=== PATIENT | female | born 1940 | race Caucasian/White ===

== ENCOUNTER → 2016-04-07 | Outpatient (CLI) | payer OTHER ==
[~2016-04-07] MED LIST: ACET-1311 PO; ASPI81TA28 PO; DILT180C96 PO; ESTR0.1D16 TD; IBUP-1459 PO
--- NOTE | 2016-04-10 14:55 | MAMMOGRAPHY REPORT ---
BILATERAL DIGITAL SCREENING MAMMOGRAM WITH CAD: 04/07/2016 CLINICAL HISTORY: Routine screening. Patient has no complaints. TECHNIQUE: Current study was also evaluated with a Computer Aided Detection (CAD) system. COMPARISON: Comparison is made to exams dated: 04/05/2015 mammogram, 03/13/2013 mammogram, 03/16/2014 mammogram, 04/14/2010 mammogram - [facility], and 09/24/2008. BREAST COMPOSITION: The tissue of both breasts is extremely dense, which lowers the sensitivity of mammography. FINDINGS: No suspicious masses, calcifications, or areas of architectural distortion are noted in e ither breast. There has been no significant interval change compared to prior exams. Scattered bilat eral benign-appearing calcifications are not significantly changed. Asymmetries in the left superio r breast on the MLO view appear stable to prior exams including the 2010 exam, and felt to represent normal fibroglandular tissue. IMPRESSION: ACR BI-RADS CATEGORY 2: BENIGN There is no mammographic evidence of malignancy. A 1 year screening mammogram is recommended. The p atient will receive written notification of the results. Approximately 10% of breast cancers are not detected with mammography. A negative mammographic repor t should not delay biopsy if a clinically suggestive mass is present. Ammy Barfield M.D. ah/:04/07/2016 16:41:33 Call Center Director: Flora SULLIVAN)(M), [facility] letter sent: Normal 1/2 BI-RADS Code: ACR BI-RADS Category 2: Benign
== END | disposition home or self-care (01) ==
LOC: C.MAMM 08:44
PROVIDERS: ATTEND Obstetrics & Gynecology
DX: Z12.31 Encounter for screening mammogram for malignant neoplasm of breast (principal)

== ENCOUNTER → 2016-05-15 | Outpatient (CLI) | payer OTHER ==
[2016-05-15 13:47] LABS: BLOOD UREA NITROGEN 15 mg/dl (7-18); BUN/CREATININE RATIO 19.2 (10-20); CALCIUM 9.1 mg/dl (8.5-10.1); CARBON DIOXIDE 28 mmol/L (21-32); CHLORIDE 104 mmol/L (98-107); CREATININE 0.76 mg/dl (0.60-1.20); GLUCOSE 79 mg/dl (70-99); SODIUM 140 mmol/L (136-145)
[2016-05-15 13:58] LABS: ESTIMATED AVERAGE GLUCOSE 108 mg/dl; HA1C FLAG Normal (Normal)
--- NOTE | 2016-05-19 11:45 | CODING QUERY MEDICAL NECESSITY ---
SUPPORTING DIAGNOSIS NEEDED A supporting diagnosis is required for the test/procedure performed on this patient in order for us to be reimbursed by the patient's insurance. Please provide a supporting diagnosis for the following test/procedure listed below next to the test name along with your signature. *If there is no additional diagnosis for this patient that would support the following test/procedure please document that below next to the test/procedure. Test(s)/Procedure(s) that require a supporting diagnosis: * GLYCATED HEMOGLOBIN DIAGNOSIS: * DOS: 05/15/16 Provider Signature: Date: Thank you Alexandria [facility]ers Health Information Management Once completed, please kindly fax back to [phone] For questions please call [phone]
== END | disposition home or self-care (01) ==
LOC: C.LAB 12:12
PROVIDERS: ATTEND Family Medicine
DX: I10 Essential (primary) hypertension (principal); I20.8 Other forms of angina pectoris; R73.03 Prediabetes; E55.9 Vitamin D deficiency, unspecified

== ENCOUNTER → 2016-05-29 | Outpatient (CLI) | payer OTHER | END | disposition home or self-care (01) | LOC: C.PAPS 09:08 | PROVIDERS: ATTEND Obstetrics & Gynecology | DX: Z12.4 Encounter for screening for malignant neoplasm of cervix (principal) ==

== ENCOUNTER → 2016-12-05 | Outpatient (CLI) | payer OTHER ==
[2016-12-05 10:10] LABS: HEMATOCRIT 44.4 % (37-47); MEAN CELL VOLUME 88.4 fL (80-100); MEAN CORPUSCULAR HEMOGLOBIN 29.7 pg (25-34); MEAN CORPUSCULAR HGB CONC 33.6 g/dl (32-36); PLATELET COUNT 204 K/uL (130-400); RED BLOOD COUNT 5.02 M/uL (4.2-5.4); WHITE BLOOD COUNT 5.14 K/uL (4.8-10.8)
[2016-12-05 10:25] LABS: ESTIMATED AVERAGE GLUCOSE 108 mg/dl; HA1C FLAG Normal (Normal)
[2016-12-05 10:37] LABS: BLOOD UREA NITROGEN 15 mg/dl (7-18); BUN/CREATININE RATIO 18.3 (10-20); CALCIUM 9.1 mg/dl (8.5-10.1); CARBON DIOXIDE 31 mmol/L (21-32); CHLORIDE 105 mmol/L (98-107); GLUCOSE 86 mg/dl (70-99); POTASSIUM 4.5 mmol/L (3.5-5.1); SODIUM 140 mmol/L (136-145)
[2016-12-05 10:41] LABS: CHOLESTEROL 212 mg/dl (0-200); CHOLESTEROL/HDL RATIO 2.8; HDL CHOLESTEROL 75 mg/dl; LDL CHOLESTEROL CALCULATED 113 mg/dl; TRIGLYCERIDES 122 mg/dl (0-150); VERY LOW DENSITY LIPOPROT CALC 24 mg/dl
== END | disposition home or self-care (01) ==
LOC: C.LAB 09:26
PROVIDERS: ATTEND Nurse Practitioner Family
DX: I10 Essential (primary) hypertension (principal); I20.8 Other forms of angina pectoris; R73.03 Prediabetes; R32 Unspecified urinary incontinence

== ENCOUNTER → 2017-06-14 | Outpatient (CLI) | payer OTHER ==
[2017-06-14 13:13] LABS: BASO % 0.5 %; BASO ABS # 0.03 K/uL (0-0.2); EOS ABS # 0.12 K/uL (0-0.5); HEMATOCRIT 42.5 % (37-47); HEMOGLOBIN 14.2 g/dL (12.0-16.0); IG# 0.02 K/uL (0.00-0.02); LYMPH % 22.4 %; LYMPH ABS # 1.34 K/uL (1.2-3.4); MEAN CELL VOLUME 88.9 fL (80-100); MEAN CORPUSCULAR HEMOGLOBIN 29.7 pg (25-34); MEAN CORPUSCULAR HGB CONC 33.4 g/dl (32-36); MEAN PLATELET VOLUME 10.5 fL (7.4-10.4); MONO % 4.5 %; MONO ABS # 0.27 K/uL (0.11-0.59); NEUT % 70.3 %; NEUT ABS # 4.21 K/uL (1.4-6.5); PLATELET COUNT 204 K/uL (130-400); RED CELL DISTRIBUTION WIDTH CV 12.9 % (11.5-14.5); RED CELL DISTRIBUTION WIDTH SD 41.9 fL (36.4-46.3); WHITE BLOOD COUNT 5.99 K/uL (4.8-10.8)
[2017-06-14 13:36] LABS: ALBUMIN 3.8 gm/dl (3.4-5.0); ALT/SGPT 29 U/L (12-78); AST/SGOT 21 U/L (15-37); BLOOD UREA NITROGEN 9 mg/dl (7-18); CALCIUM 9.1 mg/dl (8.5-10.1); CARBON DIOXIDE 27 mmol/L (21-32); CREATININE 0.79 mg/dl (0.60-1.20); GLUCOSE 87 mg/dl (70-99); POTASSIUM 4.2 mmol/L (3.5-5.1); SODIUM 139 mmol/L (136-145)
[2017-06-14 13:43] LABS: T3 FREE 2.57 pg/ml (2.30-4.20)
[2017-06-14 13:47] LABS: ALKALINE PHOSPHATASE 67 U/L (45-117); TOTAL PROTEIN 7.6 gm/dl (6.4-8.2)
== END | disposition home or self-care (01) ==
LOC: C.LAB 11:43
PROVIDERS: ATTEND Nurse Practitioner Family
DX: I10 Essential (primary) hypertension (principal); R73.03 Prediabetes; E55.9 Vitamin D deficiency, unspecified; R53.83 Other fatigue; I20.8 Other forms of angina pectoris

== ENCOUNTER 2018-10-18 00:57 | Inpatient (IN) ==
[2018-10-18] MEDS ORDERED: fentaNYL citrate 100 MCG/2 ML VIAL ONE ×3 (01:41→20:47)
[2018-10-18 02:02] LABS: Basophils # (auto) 0.03 K/uL (0-0.2); Basophils % (auto) 0.5 %; Eosinophils # (auto) 0.16 K/uL (0-0.5); Eosinophils % (auto) 2.7 %; Hematocrit (blood only) 41.9 % (37-47); Hemoglobin 14.1 g/dL (12.0-16.0); Immature Granulocytes # (auto) 0.02 K/uL (0.00-0.02); Immature Granulocytes % (auto) 0.3 %; Lymphocytes % (auto) 36.1 %; Mean Corpuscular Hgb Conc 33.7 g/dL (32-36); Mean Corpuscular Volume 87.5 fL (80-100); Mean Platelet Volume 10.4 fL (7.4-10.4); Monocytes # (auto) 0.42 K/uL (0.11-0.59); Monocytes % (auto) 7.2 %; Neutrophils # (auto) 3.09 K/uL (1.4-6.5); Neutrophils % (auto) 53.2 %; Platelet Count 177 K/uL (130-400); RDW Coefficient of Variation 13.4 % (11.5-14.5); RDW Standard Deviation 42.4 fL (36.4-46.3); Red Blood Count 4.79 M/uL (4.2-5.4); White Blood Count 5.82 K/uL (4.8-10.8)
[2018-10-18 02:05] LABS: D Dimer 410 ug/L FEU (0-500)
[2018-10-18 02:18] LABS: Alanine Aminotransferase 26 U/L (12-78); Albumin Globulin Ratio 1.1 (0.9-2); Albumin Level 4.1 gm/dl (3.4-5.0); Alkaline Phosphatase 101 U/L (45-117); Aspartate Aminotransferase 18 U/L (15-37); BUN Creatinine Ratio 19.7 (10-20); Bilirubin,Total 0.2 mg/dl (0.2-1); Blood Urea Nitrogen 17 mg/dl (7-18); Carbon Dioxide 27 mmol/L (21-32); Chloride 107 mmol/L (98-107); Est GFR (African American) 72.5; Est GFR (Non-African American) 62.5; Globulin 3.8 gm/dl (2.5-4.0); Glucose 104 mg/dl (70-99); Potassium 3.7 mmol/L (3.5-5.1); Sodium 141 mmol/L (136-145); Total Protein 7.9 gm/dl (6.4-8.2); Troponin I < 0.015 ng/ml (0-0.045)
[2018-10-18] MEDS ORDERED: ONDANSETRON INJ 2 MG/ML 2 ML VIAL IV STA ×2 (02:52→05:10)
[2018-10-18] MEDS ORDERED: HydrALAZINE HCL 20 MG/ML VIAL IV ONE (04:37)
[2018-10-18] MEDS ORDERED: HYDROmorphone INJ 1 MG/ML SYRINGE IV PRN ×2 (06:18)
[2018-10-18] MEDS ORDERED: AMPICILLIN/SULBACTAM SOD 3,000 MG in 0.9 % SODIUM CHLORIDE 100 ML IV SCH (06:18)
[2018-10-18] MEDS: LACTATED RINGER'S 1,000 ML IV SCH ×2 (06:39→18:26)
--- NOTE | 2018-10-18 06:53 | Emergency Department Note ---
Entered by Edel Stanley acting as a scribe for Kacie Marsh DO History of Present Illness General Chief complaint: Chest Pain Time Seen by Provider: 10/18/18 02:02 Source: patient and family History of Present Illness Onset (ago): hour(s) 1 Location: chest Radiation: back Severity: severe Pain Consistency: + constant Quality: + stabbing Relieved By: not by medication (Rolaide) Exacerbated By: + other (Lying in certain position) Associated symptoms: + chest pain; no nausea/vomiting, no shortness of breath and no other (Lower extremity swelling, abnormal urinary symptoms and abnormal bowel movements.) Treatments prior to arrival: other (Rolaide) The patient is a 78 year old female presenting to the Emergency Department complaining of constant chest pain starting 1 hour ago. The patient reports that she has severe chest pain just beneath her breasts. She states that this pain radiates across her chest and around to her back. She describes this pain as stabbing. She notes that lying in certain positions worsens her pain. She adds that she has never experienced this kind of pain before and that this pain does not feel like angina that she has experienced before. The patient reports that her chest feels equally painful and that one side of her chest does not hurt more than the other. She states that it feels like pilar eone is tightening a belt around her chest. She explains that she took Rolaids for her symptoms GRAIN OILSEED OR [employer]URE [employer] that did not help. She notes that she ate a normal dinner with crab cakes. The patients reports that the patient was diagnosed 1 week ago with breast cancer. He states that the patient went to [facility] earlier today for an appointment regarding her breast cancer. He adds that the patient had an oophorectomy about 7 weeks ago and experienced no complications from it. 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 The patient denies shortness of breath, increased pain on deep breathing, dizziness, nausea, vomiting, lower extremity swelling, abnormal urinary symptoms and abnormal bowel movements. This patient was seen at 0108 during a scheduled, ED wide [facility] downtime. Home Medications Home Medications Medication Instructions Recorded Confirmed Type aspirin 81 mg PO DAILY 10/18/18 10/18/18 History diltiazem HCl 180 mg PO DAILY 10/18/18 10/18/18 History estradiol 1 patch TRANSDERMAL WK 10/18/18 10/18/18 History Allergies Allergy/AdvReac Type Severity Reaction Status Date / Time codeine Allergy Unknown Unknown Verified 10/18/18 03:54 adhesive AdvReac Unknown Unknown Verified 10/18/18 03:54 morphine AdvReac Unknown NAUSEA/VOMI Verified 10/18/18 03:54 TING OPIATEAGONISTS AdvReac Mild SEVERE Uncoded 10/18/18 03:54 SEDATION Past Med/Surg History Medical History Cardiac syndrome X Breast cancer Surgical History History of oophorectomy Family History Other Family history non-contributory Social History Communication Ability: Effective Beliefs That Will Affect Care: None marital status: Current Living Situation: Alone and Spouse Feels Safe at Home: Yes Safety Concerns: Feels Safe At This Time Smoking Status: Former smoker Tobacco Type: cigarettes Do You Dip or Chew Tobacco: No Second Hand Exposure: No Tobacco Cessation Education Requested by Patient: No Hx Alcohol Use: Yes Alcohol type: wine Hx Substance Use: No Review of Systems See HPI for pertinent positives & negatives. and A total of 10 systems reviewed and were otherwise negative Physical Exam Vital Signs Vital Signs - 24 hr 10/18/18 02:35 10/18/18 03:42 10/18/18 04:48 Pulse Rate [Finger] 68 68 67 Respiratory Rate 18 18 18 Blood Pressure [Right Arm] 186/78 H 169/90 H 114/90 Blood Pressure Mean [Right Arm] 114 116 98 Pulse Oximetry 98 93 98 Oxygen Delivery Method Room Air Room Air Room Air GENERAL: alert, uncomfortable appearing, well nourished, in moderate distress, non-toxic EYE EXAM: normal conjunctiva, PERRL and EOM's grossly intact OROPHARYNX: no exudate, no erythema, lips, buccal mucosa, and tongue normal and mucous membranes are moist NECK: supple, no nuchal rigidity, no adenopathy, non-tender LUNGS: Clear to auscultation. Normal chest wall mechanics, no w/r/r HEART: no murmurs, S1 normal and S2 normal. No reproducible pain to chest wall. ABDOMEN: abdomen soft, non-tender, normo-active bowel sounds, no masses, no rebound or guarding. BACK: Back is symmetrical on inspection and there is no deformity, no midline tenderness, no CVA tenderness. SKIN: no rashes and no bruising UPPER EXTREMITIES: upper extremities are grossly normal. FROM, nml pulses b/l. LOWER EXTREMITIES: No pitting edema. FROM, nml pulses b/l. NEURO EXAM: Normal sensorium, cranial nerves II-XII grossly intact, normal speech, no gross weakness of arms, no gross weakness of legs. Course 0108: The patient was evaluated in room B11B, and a complete history and physical examination were performed. 0231: I reevaluated the patient at this time whose pain is improved but still present. I updated the patient on her results at this time. 0423: I rechecked the patient at this time who is getting a bedside US. 0432: I reevaluated the patient at this time who is more comfortable after receiving pain medication. 0451: I discussed the patients case with Dr. Sutherland general surgeon. She will evaluate the patient for further admission. Consultations Consultation #1: I discussed the patients case with Dr. Sutherland general surgeon. She will evaluate the patient for further admission. Time: 04:51 Administered Medications Aspirin (Ecotrin Ectab) 81 mg PO DAILY [facility] Stop: 11/17/18 08:59 Last Admin: 10/18/18 07:58 Dose: Not Given Documented by: [id number] Diltiazem HCl (Cardizem Cd) 180 mg PO DAILY [facility] Stop: 11/17/18 08:59 Last Admin: 10/18/18 08:07 Dose: 180 mg Documented by: [id number] Hydromorphone HCl (Dilaudid) 0.5 mg IV Q3H PRN PRN Reason: MILD Pain (Scale 1,2,3) Stop: 11/01/18 06:17 Last Admin: 10/18/18 08:05 Dose: 0.5 mg Documented by: [id number] Lactated Ringer's (Lr) 1,000 mls @ 100 mls/hr IV .Q10H PAU[facility]TTE Stop: 11/17/18 06:17 Last Infusion: 10/18/18 08:05 Dose: 0 mls/hr Documented by: [id number] Admin: 10/18/18 06:39 Dose: 100 mls/hr Documented by: [id number] Ampicillin Sodium/Sulbactam Sodium 3,000 mg/ Sodium Chloride 108 mls @ 200 mls/hr IV PREOP PAULETTE; Protocol Stop: 10/19/18 06:17 Last Admin: 10/18/18 08:07 Dose: 200 mls/hr Documented by: [id number] Discontinued Medications Fentanyl Citrate (Fentanyl Citrate) Confirm Administered Dose 100 mcg .ROUTE .STK-MED ONE Stop: 10/18/18 02:56 Last Increment: 10/18/18 02:57 Dose: 25 mcg Documented by: [id number] Hydralazine HCl (Hydralazine Hcl) 5 mg IV NOW ONE Stop: 10/18/18 04:38 Last Admin: 10/18/18 04:56 Dose: Not Given Documented by: [id number] Ondansetron HCl (Zofran) 4 mg IV NOW STA Stop: 10/18/18 02:53 Last Admin: 10/18/18 02:57 Dose: 4 mg Documented by: [id number] Ondansetron HCl (Zofran) 4 mg IV NOW STA Stop: 10/18/18 05:11 Last Admin: 10/18/18 05:13 Dose: 4 mg Documented by: [id number] Medical Decision Making Differential Diagnosis Differential diagnoses includes but is not limited to acute coronary syndrome, myocardial infarction, pericarditis, pulmonary embolus, aortic dissection, pneumonia, pneumothorax, musculoskeletal, shingles, esophageal, gastritis, peptic ulcer disease, GERD, gallbladder disease, pancreatitis, small bowel obstruction, acute coronary syndrome, pericarditis, ischemic bowel, irritable abby wel disease, irritable bowel syndrome, appendicitis, diverticulitis, malignancy, hernia, urinary tract infection, torsion, perforation, trauma, infectious among others. Medical Records Attestation: I reviewed the patient's medical records. Home Medications Current Medication List: was personally reviewed by me Laboratory Data Attestation: I reviewed the patient's lab results. Result diagrams: 10/18/18 01:25 10/18/18 01:25 Lab Results 10/18/18 10/18/18 10/18/18 Range/Units 01:25 01:25 01:25 WBC 5.82 (4.8-10.8) K/uL RBC 4.79 (4.2-5.4) M/uL Hgb 14.1 (12.0-16.0) g/dL Hct 41.9 (37-47) % MCV 87.5 (80-100) fL MCH 29.4 (25-34) pg MCHC 33.7 (32-36) g/dL RDW Std Deviation 42.4 (36.4-46.3) fL RDW Coeff of Rodolfo 13.4 (11.5-14.5) % Plt Count 177 (130-400) K/uL MPV 10.4 (7.4-10.4) fL Immature Gran % (Auto) 0.3 % Neut % (Auto) 53.2 % Lymph % (Auto) 36.1 % Fannin % (Auto) 7.2 % Eos % (Auto) 2.7 % Baso % (Auto) 0.5 % Immature Gran # (Auto) 0.02 (0.00-0.02) K/uL Neut # (Auto) 3.09 (1.4-6.5) K/uL Lymph # (Auto) 2.10 (1.2-3.4) K/uL Fannin # (Auto) 0.42 (0.11-0.59) K/uL Eos # (Auto) 0.16 (0-0.5) K/uL Baso # (Auto) 0.03 (0-0.2) K/uL D-Dimer 410 (0-500) ug/L FEU Sodium 141 (136-145) mmol/L Potassium 3.7 (3.5-5.1) mmol/L Chloride 107 (98-107) mmol/L Carbon Dioxide 27 (21-32) mmol/L Anion Gap 7.0 (3-11) BUN 17 (7-18) mg/dl Creatinine 0.89 (0.6-1.2) mg/dl Est Cr Clr Drug Dosing Not Reportable Est GFR ( Amer) 72.5 Est GFR (Non-Af Amer) 62.5 BUN/Creatinine Ratio 19.7 (10-20) Glucose 104 H (70-99) mg/dl Calcium 9.0 (8.5-10.1) mg/dl Total Bilirubin 0.2 (0.2-1) mg/dl AST 18 (15-37) U/L ALT 26 (12-78) U/L Alkaline Phosphatase 101 (45-117) U/L Troponin I < 0.015 (0-0.045) ng/ml Total Protein 7.9 (6.4-8.2) gm/dl Albumin 4.1 (3.4-5.0) gm/dl Globulin 3.8 (2.5-4.0) gm/dl Albumin/Globulin Ratio 1.1 (0.9-2) Lipase 169 (73-393) U/L Specimen Hemolysis Imaging Data Attestation: I personally reviewed and interpreted this imaging study as foll ows: My Impression: XR Chest 1V portable: No cardiomegaly. No effusion. No focal consolidation. No wide mediastinum. No acute pulmonary edema. Radiologist's Impression: Radiology results as stated below per my review and the radiologist's interpretation: US RUQ: Multiple gallstones in distended gallbladder, including stones in the gallbladder neck/cystic duct. Mild gallbladder wall thickening, measuring up to 3.2 mm. Evaluation for sonographic Westlake sign limited by pain medication. Findings are suspicious for acute cholecystitis. Consider correlation with nuclear medicine biliary scan as clinically warranted. Common bile duct measures up to 8.7 mm, which is borderline for patients age. Liver measures 21.4 cm along, compatible with Riedels lobe as seen on prior CT 10/18/05. No pancreatic duct dilation. Right kidney unremarkable. Radiologist: Jared Mitchell MD. Study ready at 0358 and initial results transmitted at 0411. ECG Data Attestation: I personally reviewed and interpreted this ECG as follows: Indication: chest pain Rate (beats per minute): 72 Rhythm: sinus rhythm Findings: + other (Normal axis. Normal intervals.); no acute ischemic change and no ectopy Blood Pressure Blood Pressure Findings: Normal blood pressure Blood Pressure Disposition: further management by hospitalist [facility] Narrative Patient here initially uncomfortable appearing in mild to moderate distress. Labs are drawn, IV started, EKG obtained and patient placed on classroom monitor. Patient given IV fentanyl to help with pain control and to not him to repeat evaluations. Patient states several doses of fentanyl did improve her pain, however she then became nauseated and required additional IV Zofran. Initial chest x-ray reassuring, labs reassuring also. Given location of pain along the epigastric and costal margins, patient sent for ultrasound of the gallbladder which was read by the overnight radiologist as evolving acute cholecystitis. Patient's LFTs were normal, no leukocytosis. Patient and were made aware of all results. Call placed to general surgery first for evaluation of acute cholecystitis, Dr. Sutherland was comfortable please see admission orders on the patient and she your her colleague will see her in the morning. Patient's pain improved with repeat doses of pain medication and nausea medication while in the emergency room. Patient hemodynamically stable. I do not suspect concurrent pancreatitis, ascending cholangitis, or bacteremia/sepsis. I do not suspect perforation or GI bleed, mesenteric ischemia, colitis, or bowel obstruction. I feel patient's recent diagnosis of breast cancer following abnormal mammogram and biopsy are unrelated to this. I do not suspect PE. Impression & Plan Cholecystitis, Abdominal pain Discharge Plan Visit Data *Final* Discharge Date/Time: 10/18/18 05:46 Chief Complaint: Chest Pain ED Provider: Kacie Marsh Discharge Problem: Cholecystitis, Abdominal pain Patient Disposition: Admitted As Inpatient Discharge Instructions Interventions: ED Discharge Assessment Last Done: 10/18/18 05:46 Discharge Problem: Abdominal pain Qualifiers: Abdominal location: unspecified location Qualified Code(s): R10.9 - Unspecified abdominal pain The scribe's documentation has been prepared under my direction and personally reviewed by me in its entirety. I confirm that the note above accurately reflects all work, treatment, procedures, and medical decision making performed by me.
--- NOTE | 2018-10-18 07:23 | Ultrasound Report ---
ULTRASOUND RIGHT UPPER QUADRANT ABDOMEN CLINICAL HISTORY: Epigastric abdominal pain. COMPARISON STUDY: Abdominal CT dated 10/18/2005. TECHNIQUE: Real-time, grayscale, and color flow sonography of the right upper quadrant of the abdomen was performed. Images are reviewed in the transverse and longitudinal planes. FINDINGS: Liver: The liver is normal in size and echotexture. The liver is elongated, suggesting right lobe lynsey iant anatomy. There is mild central intrahepatic biliary ductal dilatation. The main portal vein is p atent. Gallbladder: The gallbladder is distended and filled with numerous shadowing gallstones. The gallblad elsa measures up to 12 cm in length. The gallbladder wall is mildly thickened and edematous measuring over 3 mm in length. No pericholecystic fluid is identified. A sonographic Hoffman's sign could not be assessed. The common bile duct measures up to 0.7 cm in diameter. A shadowing gallstone is identifie d within the common bile duct. Pancreas: Visualized portions of the pancreatic head and body are normal in appearance. The splenic v ein is patent. Right kidney: Survey images of the right kidney demonstrate normal size and echotexture. There is no hydronephrosis. Ascites: None. IMPRESSION: 1. Cholelithiasis with sonographic evidence of acute cholecystitis. 2. Choledocholithiasis is noted. Electronically signed by: Jasmeet Hardy M.D. 10/18/2018 7:22 AM
--- NOTE | 2018-10-18 07:35 | XRay Report ---
SINGLE VIEW CHEST CLINICAL HISTORY: Atypical chest pain. FINDINGS: 2 AP, portable, upright chest radiographs are compared to study dated 03/15/2015. The exami nation is degraded by portable technique and patient rotation. The cardiomediastinal silhouette is unremarkable noting atherosclerotic calcification of the thoracic aorta. Mild patchy airspace consoli dation is identified at the right lung base. The lungs and pleural spaces are otherwise clear. No pne umothorax is seen. The bony thorax is grossly intact. IMPRESSION: No acute cardiopulmonary abnormality. Electronically signed by: Jasmeet Hardy M.D. 10/18/2018 7:33 AM
[2018-10-18] MEDS: ASPIRIN 81 MG ECTAB PO SCH (07:58)
[2018-10-18] MEDS: HYDROmorphone INJ 0.5 MG/0.5 ML SYR IV PRN ×2 (08:05→15:45)
[2018-10-18] MEDS: dilTIAZem HCL 180 MG CAPCR PO SCH (08:07)
--- NOTE | 2018-10-18 09:11 | Gastrointestinal Consultation ---
Date of Consultation October 18, 2018 Assessment & Plan (1) Cholecystitis: 78 year old female presenting w/ acute upper abdominal pain w/ mild nausea no vomiting imaging concerning for acute cholecystitis, gallstones w/ biliary dilation and visualization of CBD stone - NPO - No S/S of cholangitis - Will discuss with on-call ERCP physician Dr. Robledo - Tentative plan for ERCP in the OR today around 1:30 - Appreciate general surgery recommendations in regards to timing of cholecystectomy - Will call per pt request Thank you for allowing us to participate in the care of this patient. Please call with any acute changes, questions or concerns. Please see addendum below with additional recommendation from my supervising physician. Present on Admission?: Yes Supervising Physician Co-Signing Physician Notes I have personally seen and examined the patient with COURT Morin. Her note reflects my exam and findings. I agree with her impression and plan. Needs ERCP to remove stone and than Lap Ratna. Rodger Liriano M.D. History of Present Illness Reason for Consultation: ERCP Requesting Physician: Koko Attending Physician: Rachell Sutherland MD History of Present Illness 78 year old femalt w/ history of recently diagnosed breast CA now following w/ [facility] s/p oophorectomy about 7 weeks ago on home ASA who presented through the ED for persisted upper abdominal pain after dinner which did not resolve w/ rolaids. She is a poor historian. She notes abrupt onset upper abdominal pain after eating crab cakes. Has never had similar pain to this before. Sharp, stabbing. Did not radiate. No associated nausea/vomiting. No change in bowels. Pain has persisted through the evening and into this AM prompting additional narcotic analgesia this AM. Now feels pain is slowly improving. Denies any black/bloody stools or emesis. No fever, chills, CP, SOB. ABD US: Cholelithiasis with sonographic evidence of acute cholecystitis. Choledocholithiasis is noted. Allergies Allergy/AdvReac Type Severity Reaction Status Date / Time codeine Allergy Unknown Unknown Verified 10/18/18 03:54 adhesive AdvReac Unknown Unknown Verified 10/18/18 03:54 morphine AdvReac Unknown NAUSEA/VOMI Verified 10/18/18 03:54 TING OPIATEAGONISTS AdvReac Mild SEVERE Uncoded 10/18/18 03:54 SEDATION Home Medications Home Medications Medication Instructions Recorded Confirmed Type aspirin 81 mg PO DAILY 10/18/18 10/18/18 History diltiazem HCl 180 mg PO DAILY 10/18/18 10/18/18 History estradiol 1 patch TRANSDERMAL WK 10/18/18 10/18/18 History Patient History Medical History Cardiac syndrome X Breast cancer Surgical History History of oophorectomy Family History Other Family history non-contributory Social History Communication Ability: Effective Beliefs That Will Affect Care: None marital status: Current Living Situation: Alone and Spouse Feels Safe at Home: Yes Safety Concerns: Feels Safe At This Time Smoking Status: Former smoker Tobacco Type: cigarettes Do You Dip or Chew Tobacco: No Second Hand Exposure: No Tobacco Cessation Education Requested by Patient: No Hx Alcohol Use: Yes Alcohol type: wine Hx Substance Use: No Review of Systems Constitutional: no fever, no chills and no fatigue Respiratory: no cough, no dyspnea and no wheezing Cardiovascular: no chest pain, no radiating jaw, neck or arm pain and no dyspnea on exertion Gastrointestinal: + abdominal pain; no heartburn, no nausea, no vomiting, no coffee ground emesis, no hematemesis, no dysphagia, no cramping, no change in bowel habits, no diarrhea/loose stools, no blood in stools and no melena Physical Exam Constitutional: WD/WN, vitals as above Neck: trachea midline Respiratory: normal respiratory effort, lungs clear to auscultation Cardiovascular: RRR, no murmur, no edema Gastrointestinal (Abdomen): Percussion/Palpation: + abdomen tender (very mild RUQ pain w/ palpation) and abdomen soft; no guarding, abdomen not rigid, no hernia, no abdominal mass and no ascites Skin: no rashes, warm and dry Results & Data Vital Signs (Past 12 Hours) Vital Signs Temp Pulse Resp BP Pulse Ox 10/18/18 06:19 36.6 C 63 16 160/79 H 94 10/18/18 04:48 67 18 114/90 98 10/18/18 03:42 68 18 169/90 H 93 10/18/18 02:35 68 18 186/78 H 98 Laboratory Results 10/18/18 10/18/18 10/18/18 Range/Units 01:25 01:25 01:25 WBC 5.82 (4.8-10.8) K/uL RBC 4.79 (4.2-5.4) M/uL Hgb 14.1 (12.0-16.0) g/dL Hct 41.9 (37-47) % MCV 87.5 (80-100) fL MCH 29.4 (25-34) pg MCHC 33.7 (32-36) g/dL RDW Std Deviation 42.4 (36.4-46.3) fL RDW Coeff of Rodolfo 13.4 (11.5-14.5) % Plt Count 177 (130-400) K/uL MPV 10.4 (7.4-10.4) fL Immature Gran % (Auto) 0.3 % Neut % (Auto) 53.2 % Lymph % (Auto) 36.1 % Garrard % (Auto) 7.2 % Eos % (Auto) 2.7 % Baso % (Auto) 0.5 % Immature Gran # (Auto) 0.02 (0.00-0.02) K/uL Neut # (Auto) 3.09 (1.4-6.5) K/uL Lymph # (Auto) 2.10 (1.2-3.4) K/uL Garrard # (Auto) 0.42 (0.11-0.59) K/uL Eos # (Auto) 0.16 (0-0.5) K/uL Baso # (Auto) 0.03 (0-0.2) K/uL D-Dimer 410 (0-500) ug/L FEU Sodium 141 (136-145) mmol/L Potassium 3.7 (3.5-5.1) mmol/L Chloride 107 (98-107) mmol/L Carbon Dioxide 27 (21-32) mmol/L Anion Gap 7.0 (3-11) BUN 17 (7-18) mg/dl Creatinine 0.89 (0.6-1.2) mg/dl Est Cr Clr Drug Dosing Not Reportable Est GFR ( Amer) 72.5 Est GFR (Non-Af Amer) 62.5 BUN/Creatinine Ratio 19.7 (10-20) Glucose 104 H (70-99) mg/dl Calcium 9.0 (8.5-10.1) mg/dl Total Bilirubin 0.2 (0.2-1) mg/dl AST 18 (15-37) U/L ALT 26 (12-78) U/L Alkaline Phosphatase 101 (45-117) U/L Troponin I < 0.015 (0-0.045) ng/ml Total Protein 7.9 (6.4-8.2) gm/dl Albumin 4.1 (3.4-5.0) gm/dl Globulin 3.8 (2.5-4.0) gm/dl Albumin/Globulin Ratio 1.1 (0.9-2) Lipase 169 (73-393) U/L Specimen Hemolysis
[2018-10-18] MEDS: ONDANSETRON INJ 2 MG/ML 2 ML VIAL IV PRN ×3 (10:38→20:06)
--- NOTE | 2018-10-18 11:26 | History & Physical Report ---
Date of Service October 18, 2018 Assessment & Plan (1) Choledocholithiasis with acute cholecystitis: Patient is a 78 year-old female who presented to emergency department early this morning with complaint of upper abdominal pain with radiation to her back and associated nausea that suddenly woke her up. Recent diagnosis of breast cancer stage 1 (consultation with surgeon at [facility] yesterday). 7 weeks s/p bilateral laparoscopic oophorectomy for bilateral ovarian cysts. Pathology without any carcinoma. ER work-up showed normal labs however ultrasound showing distended gallbladder, stones, evidence of acute cholecystitis, and choledocholithiasis. Abdomen is soft, nontender on examination this morning. Plan: Given evidence of choledocholithiasis on ultrasound, consult GI for ERCP. Discussed with patient findings of acute cholecystitis and recommendation for cholecystectomy given pain and choledocholithiasis. Discussed the options of cholecystectomy timing either as an inpatient or scheduled as an outpatient. Dr Celestin prefers not to do cholecystectomy at same time of ERCP given prolonged anesthesia. Discussed option of inpatient cholecystectomy on Sunday vs outpatient cholecystectomy if she stays stable and pain controlled after ERCP. At this time her and her would like to schedule for cholecystectomy on Sunday. Discussed with patient laparoscopic approach to the surgery. Continue NPO status for ERCP today Continue IV pain management as needed Continue IV Zofran as needed Continue IV Unasyn SCDs, will add Lovenox SQ for DVT prophylaxis after ERCP May have clear liquids and advance to low fat diet after ERCP up until Sunday at midnight NPO Sunday after midnight Hold Lovenox starting Sunday at midnight follow labs over weekend If she were to decide for outpatient cholecystectomy, would recommend PO Cipro for 7 days and close follow-up with Dr. Celestin early next week to schedule cholecystectomy. Dr. Sheets covering this weekend Dr. Celestin has seen and examined patient, agrees with above. History of Present Illness Chief Complaint: Chest pain with radiation to her back Nausea Primary Care Provider: Teresa Vizcarra MD Tiffanie is a pleasant 78 year-old female who was just diagnosed with breast cancer last Sunday who presented to emergency department early this morning with complaint of sudden chest pain, upper abdominal pain with radiation to her back, and associated nausea. States she was at [facility] yesterday for breast cancer consultation and came home and had dinner with her consuming crab cakes, a janki, and dessert. States she was feeling fine and then woke up with upper abdominal pain that was band like across her abdomen, sharp stabbing in nature. Nausea but no vomiting. Never had this type of pain before. No recent changes in stool, no difficulty urinating, no fever, chills, or sweats. ER work-up included labs which showed no leukocytosis, normal lfts, t.bili and lipase. Ultrasound of abdomen showing distended gallbladder measuring 12 cm with multiple shadowing stones and mild gallbladder wall thickness consistent with acute cholecystitis. CBD dilated and visualized common bile duct stone present. She states she has never had any troubles with her gallbladder in the past. She recently had laparoscopic bilateral oophorectomy for enlarged ovaries which pathology showed noncancerous. She has history of hysterectomy many years ago. Currently takes 81 mg of aspirin daily. No other blood thinning agents. Since admission she states pain is significantly improved but still nauseated. Allergies Allergy/AdvReac Type Severity Reaction Status Date / Time codeine Allergy Unknown Unknown Verified 10/18/18 03:54 adhesive AdvReac Unknown Unknown Verified 10/18/18 03:54 morphine AdvReac Unknown NAUSEA/VOMI Verified 10/18/18 03:54 TING OPIATEAGONISTS AdvReac Mild SEVERE Uncoded 10/18/18 03:54 SEDATION Home Medications Home Medications Medication Instructions Recorded Confirmed Type aspirin 81 mg PO DAILY 10/18/18 10/18/18 History diltiazem HCl 180 mg PO DAILY 10/18/18 10/18/18 History estradiol 1 patch TRANSDERMAL WK 10/18/18 10/18/18 History Past Med/Surg History Medical History Cardiac syndrome X Breast cancer History of hysterectomy Surgical History History of oophorectomy Family History Other Family history non-contributory Social History Communication Ability: Effective Beliefs That Will Affect Care: None marital status: Current Living Situation: Alone and Spouse Feels Safe at Home: Yes Safety Concerns: Feels Safe At This Time Smoking Status: Former smoker Tobacco Type: cigarettes Do You Dip or Chew Tobacco: No Second Hand Exposure: No Tobacco Cessation Education Requested by Patient: No Hx Alcohol Use: Yes Alcohol type: wine Hx Substance Use: No Review of Systems Review of Systems: All systems reviewed & are unremarkable except as noted in HPI & below Physical Exam Constitutional: WD/WN, vitals as above no acute distress and not ill appearing Respiratory: normal respiratory effort, lungs clear to auscultation Cardiovascular: RRR, no murmur, no edema Gastrointestinal (Abdomen): Inspection/Auscultation: abdomen normal to inspection; abdomen not distended Percussion/Palpation: abdomen soft; abdomen nontender, no guarding and abdomen not rigid previous laparoscopic incisions present Skin: no rashes, warm and dry Psychiatric: A+Ox3, euthymic affect Results & Data Vital Signs (Past 12 Hours) Vital Signs Temp Pulse Resp BP Pulse Ox 10/18/18 06:19 36.6 C 63 16 160/79 H 94 10/18/18 04:48 67 18 114/90 98 10/18/18 03:42 68 18 169/90 H 93 10/18/18 02:35 68 18 186/78 H 98 Laboratory Results 10/18/18 10/18/18 10/18/18 Range/Units 12:05 01:25 01:25 WBC 5.82 (4.8-10.8) K/uL RBC 4.79 (4.2-5.4) M/uL Hgb 14.1 (12.0-16.0) g/dL Hct 41.9 (37-47) % MCV 87.5 (80-100) fL MCH 29.4 (25-34) pg MCHC 33.7 (32-36) g/dL RDW Std Deviation 42.4 (36.4-46.3) fL RDW Coeff of Rodolfo 13.4 (11.5-14.5) % Plt Count 177 (130-400) K/uL MPV 10.4 (7.4-10.4) fL Immature Gran % (Auto) 0.3 % Neut % (Auto) 53.2 % Lymph % (Auto) 36.1 % Archer % (Auto) 7.2 % Eos % (Auto) 2.7 % Baso % (Auto) 0.5 % Immature Gran # (Auto) 0.02 (0.00-0.02) K/uL Neut # (Auto) 3.09 (1.4-6.5) K/uL Lymph # (Auto) 2.10 (1.2-3.4) K/uL Archer # (Auto) 0.42 (0.11-0.59) K/uL Eos # (Auto) 0.16 (0-0.5) K/uL Baso # (Auto) 0.03 (0-0.2) K/uL D-Dimer 410 (0-500) ug/L FEU Sodium (136-145) mmol/L Potassium (3.5-5.1) mmol/L Chloride (98-107) mmol/L Carbon Dioxide (21-32) mmol/L Anion Gap (3-11) BUN (7-18) mg/dl Creatinine (0.6-1.2) mg/dl Est Cr Clr Drug Dosing Est GFR ( Amer) Est GFR (Non-Af Amer) BUN/Creatinine Ratio (10-20) Glucose (70-99) mg/dl POC Glucose 90 (70-99) Calcium (8.5-10.1) mg/dl Total Bilirubin (0.2-1) mg/dl AST (15-37) U/L ALT (12-78) U/L Alkaline Phosphatase (45-117) U/L Troponin I (0-0.045) ng/ml Total Protein (6.4-8.2) gm/dl Albumin (3.4-5.0) gm/dl Globulin (2.5-4.0) gm/dl Albumin/Globulin Ratio (0.9-2) Lipase (73-393) U/L Specimen Hemolysis 10/18/18 Range/Units 01:25 WBC (4.8-10.8) K/uL RBC (4.2-5.4) M/uL Hgb (12.0-16.0) g/dL Hct (37-47) % MCV (80-100) fL MCH (25-34) pg MCHC (32-36) g/dL RDW Std Deviation (36.4-46.3) fL RDW Coeff of Rodolfo (11.5-14.5) % Plt Count (130-400) K/uL MPV (7.4-10.4) fL Immature Gran % (Auto) % Neut % (Auto) % Lymph % (Auto) % Archer % (Auto) % Eos % (Auto) % Baso % (Auto) % Immature Gran # (Auto) (0.00-0.02) K/uL Neut # (Auto) (1.4-6.5) K/uL Lymph # (Auto) (1.2-3.4) K/uL Archer # (Auto) (0.11-0.59) K/uL Eos # (Auto) (0-0.5) K/uL Baso # (Auto) (0-0.2) K/uL D-Dimer (0-500) ug/L FEU Sodium 141 (136-145) mmol/L Potassium 3.7 (3.5-5.1) mmol/L Chloride 107 (98-107) mmol/L Carbon Dioxide 27 (21-32) mmol/L Anion Gap 7.0 (3-11) BUN 17 (7-18) mg/dl Creatinine 0.89 (0.6-1.2) mg/dl Est Cr Clr Drug Dosing Not Reportable Est GFR ( Amer) 72.5 Est GFR (Non-Af Amer) 62.5 BUN/Creatinine Ratio 19.7 (10-20) Glucose 104 H (70-99) mg/dl POC Glucose (70-99) Calcium 9.0 (8.5-10.1) mg/dl Total Bilirubin 0.2 (0.2-1) mg/dl AST 18 (15-37) U/L ALT 26 (12-78) U/L Alkaline Phosphatase 101 (45-117) U/L Troponin I < 0.015 (0-0.045) ng/ml Total Protein 7.9 (6.4-8.2) gm/dl Albumin 4.1 (3.4-5.0) gm/dl Globulin 3.8 (2.5-4.0) gm/dl Albumin/Globulin Ratio 1.1 (0.9-2) Lipase 169 (73-393) U/L Specimen Hemolysis Diagnostic Findings ULTRASOUND RIGHT UPPER QUADRANT ABDOMEN CLINICAL HISTORY: Epigastric abdominal pain. COMPARISON STUDY: Abdominal CT dated 10/18/2005. TECHNIQUE: Real-time, grayscale, and color flow sonography of the right upper quadrant of the abdomen was performed. Images are reviewed in the transverse and longitudinal planes. FINDINGS: Liver: The liver is normal in size and echotexture. The liver is elongated, suggesting right lobe variant anatomy. There is mild central intrahepatic biliary ductal dilatation. The main portal vein is patent. Gallbladder: The gallbladder is distended and filled with numerous shadowing gallstones. The gallbladder measures up to 12 cm in length. The gallbladder wall is mildly thickened and edematous measuring over 3 mm in length. No pericholecystic fluid is identified. A sonographic Hoffman's sign could not be assessed. The common bile duct measures up to 0.7 cm in diameter. A shadowing gallstone is identified within the common bile duct. Pancreas: Visualized portions of the pancreatic head and body are normal in appearance. The splenic vein is patent. Right kidney: Survey images of the right kidney demonstrate normal size and echotexture. There is no hydronephrosis. Ascites: None. IMPRESSION: 1. Cholelithiasis with sonographic evidence of acute cholecystitis. 2. Choledocholithiasis is noted. Code Status & VTE Plan VTE Prophylaxis Plan VTE Prophylaxis will be ordered: Yes
[2018-10-18] MEDS ORDERED: PIPERACILL/TAZOBAC CONSULT ACTIVE PRN (15:01)
[2018-10-18] MEDS ORDERED: PIPERACILLIN/TAZOBACTAM 3.375 GM in DEXTROSE 5% 100 ML IV ONE (15:15)
[2018-10-18] MEDS ORDERED: INDOMETHACIN 50 MG SUPP PR SCH (15:15)
[2018-10-18 15:59] LABS: Prothrombin Time 9.8 Seconds (9.0-12.0)
[2018-10-18] MEDS: PIPERACILLIN/TAZOBACTAM 3.375 GM in DEXTROSE 5% 100 ML IV SCH (19:59)
[2018-10-18] MEDS: OXYCODONE/ACETAMINOPHEN 5mg/325mg TAB PO PRN (19:59)
--- NOTE | 2018-10-18 20:07 | History & Physical Bridge Note ---
Date of Service October 18, 2018 History & Physical Bridge Note I have examined the patient, reviewed the History & Physical and in the interval since the performance of the History & Physical I have noted the following changes of clinical significance: no changes noted
[2018-10-18] MEDS ORDERED: ATROPINE SULFATE 0.1 MG/ML 10ML SYR IV PRN (20:40)
[2018-10-18] MEDS ORDERED: ONDANSETRON INJ 2 MG/ML 2 ML VIAL IV PRN (20:40)
[2018-10-18] MEDS ORDERED: PROMETHAZINE HCL 6.25 MG in SODIUM CHLORIDE 0.9% 50 ML IV PRN (20:40)
[2018-10-18] MEDS ORDERED: ePHEDrine sulfate 50 MG/ML AMP IV PRN (20:40)
[2018-10-18] MEDS ORDERED: fentaNYL citrate 100 MCG/2 ML VIAL IV PRN (20:40)
--- NOTE | 2018-10-18 20:41 | Anesthesiology Consultation ---
Date of Service October 18, 2018 Assessment & Plan (1) Encounter for pre-operative examination: Chart Review Chart Review: Acceptable Risk for Surgery and Patient NOT seen in Pre Admission Testing Consults Requested none ASA ASA2 Proposed Anesthesia Anesthesia Type: General Risk / Benefits Reviewed With: PT / POA / Parent / Guardian, Accepts Plan and In formed Consent Obtained History Surgery Operation Date: 10/18/18 15:15 Proposed Procedures p Endoscopic Retrograde Cholangiopancreatogram - Fabian Robledo MD Operation Date: 10/21/18 07:30 Proposed Procedures p Laparoscopic Cholecystectomy - Trevin Celestin MD Height/Weight Weight: 84.4 kg Allergies Allergy/AdvReac Type Severity Reaction Status Date / Time codeine Allergy Unknown Unknown Verified 10/18/18 03:54 adhesive AdvReac Unknown Unknown Verified 10/18/18 03:54 morphine AdvReac Unknown NAUSEA/VOMI Verified 10/18/18 03:54 TING Latex, Natural Rubber AdvReac Blister Verified 10/18/18 20:27 OPIATEAGONISTS AdvReac Mild SEVERE Uncoded 10/18/18 03:54 SEDATION Medications Home Medications Medication Instructions Recorded Confirmed Last Taken aspirin 81 mg PO DAILY 10/18/18 10/18/18 Unknown diltiazem HCl 180 mg PO DAILY 10/18/18 10/18/18 Unknown estradiol 1 patch TRANSDERMAL WK 10/18/18 10/18/18 Unknown Active Medications Generic Name Dose Route Start Last Admin Trade Name Freq PRN Reason Stop Dose Admin Aspirin 81 mg 10/18/18 09:00 10/18/18 07:58 Ecotrin Ectab PO 11/17/18 08:59 Not Given DAILY PAULETTE Diltiazem HCl 180 mg 10/18/18 09:00 10/18/18 08:07 Cardizem Cd PO 11/17/18 08:59 180 mg DAILY PAULETTE Administration Hydromorphone HCl 0.5 mg 10/18/18 06:18 10/18/18 15:45 Dilaudid IV 11/01/18 06:17 0.5 mg Q3H PRN Administration MILD Pain (Scale 1,2,3) Lactated Ringer's 1,000 mls @ 100 mls/hr 10/18/18 06:18 10/18/18 18:26 Lr IV 11/17/18 06:17 100 mls/hr .Q10H PAULETTE Administration Piperacillin Sod/Tazobactam 115 mls @ 28.75 mls/hr 10/18/18 20:00 10/18/18 19:59 Sod 3.375 gm/ Dextrose IV 10/28/18 19:59 28.8 mls/hr Q8H PAULETTE Administration Protocol Ondansetron HCl 4 mg 10/18/18 06:18 10/18/18 20:06 Zofran IV 11/17/18 06:17 4 mg Q4H PRN Administration Nausea And Vomiting Oxycodone/Acetaminophen 1 tab 10/18/18 06:18 10/18/18 19:59 Percocet 5mg/325mg PO 11/01/18 06:17 1 tab Q4H PRN Administration MODERATE Pain (Scale 4,5,6) NPO Date Last Intake of Fluids: 10/17/18 Time Last Intake of Fluids: 20:00 Last Intake of Fluids Comment: sip with am med Date Last Intake of Solids: 10/17/18 Time Last Intake of Solids: 20:00 Past Medical History Medical History Cardiac syndrome X Breast cancer History of hysterectomy Exercise / Class Metabolic Activity II 4-5 Yardwork/Stairs/Walk up hill Past Family History Family History Other Family history non-contributory Past Surgical History Surgical History History of oophorectomy Past Anesthesia History No Hx of Anesthesia Complications and No Family Hx of Anesthesia Complications History of PONV No Hx of PONV and No Hx of Motion Sickness Social History Smoking Status: Former smoker tobacco type: cigarettes Do You Dip or Chew Tobacco: No Hx Alcohol Use: Yes Alcohol type: wine alcohol intake frequency: 0-2 drinks per day Hx Substance Use: No Physical Exam Vital Signs Last Vital Signs Temp 36.5 C 10/18/18 19:51 Pulse 77 10/18/18 19:51 Resp 18 10/18/18 19:51 BP 166/78 H 10/18/18 19:51 Pulse Ox 90 10/18/18 19:51 ENMT Mouth: no dentition abnormality Thyromental Distance: > or= 3.5 Finger Breadths Mallampati Class: II Neck normal visual inspection Respiratory normal respiratory effort Auscultation: lungs clear to auscultation bilaterally Cardiovascular Rate/Rhythm: regular rate and regular rhythm Psychiatric Orientation: alert Testing Laboratory Results 10/18/18 01:25 10/18/18 01:25 PT 9.8 Seconds (9.0-12.0) 10/18/18 01:25 INR 1.0 (0.9-1.1) 10/18/18 01:25 10/18/18 12:05 POC Glucose 90 Electrocardiogram Findings: + NSR @ Chest X-Ray Findings: + NAD
[2018-10-18] MEDS ORDERED: PROPOFOL IV EMULSION 10 MG/ML 20 ML VIAL IV ONE (21:11)
[2018-10-18] MEDS ORDERED: DEXAMETHASONE SOD INJ 4 MG/ML VIAL ONE (21:12)
[2018-10-18] MEDS ORDERED: ONDANSETRON INJ 2 MG/ML 2 ML VIAL ONE (21:12)
[2018-10-18] MEDS ORDERED: LIDOCAINE HCL 2% 2 ML VIAL/AMP(20MG/ML) INFIL ONE (21:12)
[2018-10-18] MEDS ORDERED: SUCCINYLCHOLINE CHLORIDE 20 MG/ML 10 ML VIAL ONE (21:12)
[2018-10-18] MEDS ORDERED: LABETALOL HCL IV 5 MG/ML 20ML IV ONE (21:12)
--- NOTE | 2018-10-18 21:51 | Operative Report ---
Post Operative Report Pre & Post Diagnosis Operation Date: 10/18/18 15:15 Pre-Op Diagnosis: common bile duct stone Post-Op Diagnosis: common bile duct stone Operation Date: 10/21/18 07:30 <No data on this case meets the specified criteria> Procedure Operation Date: 10/18/18 15:15 Actual Procedures p Endoscopic Retrograde Cholangiopancreatogram(Not Applicable) - Fabian Robledo MD Operation Date: 10/21/18 07:30 <No data on this case meets the specified criteria> Surgeon Fabian Robledo MD Italian Teacher None Estimated Blood Loss 0 Findings See Below (CBD stone removed, CBD and PD stents removed) Specimens None Description of Procedure ERCP I attest to the content of the Intraoperative Record and any orders documented therein. Any exceptions are noted below.
--- NOTE | 2018-10-18 22:00 | Fluoroscopy Report ---
FL ERCP biliary ductal CLINICAL HISTORY: ERCP COMPARISON STUDY: None FLUOROSCOPY TIME: 2 minutes 4 seconds NUMBER OF FLUOROSCOPIC IMAGES: 5 FINDINGS: Imaging densifies poor was performed for an ERCP study. This shows cannulation of the commo n bile duct as well as pancreatic duct. This is followed by potential stent placement. IMPRESSION: Image intensifier support for an ERCP exam The above report was generated using voice recognition software. It may contain grammatical, syntax or spelling errors. Electronically signed by: Jose Carmona M.D. 10/18/2018 9:59 PM
--- NOTE | 2018-10-18 22:12 | GI REPORT ---
Patient Name: Tiffanie Sepulveda Procedure Date: 10/18/2018 8:28 PM Date of : 1940 Admit Type: Inpatient Age: 78 Gender: Female Attending MD: Fabian Robledo MD Procedure: ERCP Providers: Fabian Robledo MD Referring MD: Tasha Barrera Md Indications: Abdominal pain of suspected biliary origin, Bile duct stone on Ultrasound, For therapy of bile duct stone(s) Medicines: General Anesthesia Complications: No immediate complications. Estimated Blood Loss: Estimated blood loss: none. Procedure: Pre-Anesthesia Assessment: - Prior to the procedure, a History and Physical was performed, and patient medications and allergies were reviewed. The patient is competent. The risks and benefits of the procedure and the sedation options and risks were discussed with the patient. All questions were answered and informed consent was obtained. Patient identification and proposed procedure were verified by the physician and the nurse in the procedure room. Mental Status Examination: alert and oriented. Airway Examination: normal oropharyngeal airway and neck mobility. Respiratory Examination: clear to auscultation. CV Examination: normal. ASA Grade Assessment: III - A patient with severe systemic disease. After reviewing the risks and benefits, the patient was deemed in satisfactory condition to undergo the procedure. The anesthesia plan was to use general anesthesia. Immediately prior to administration of medications, the patient was re-assessed for adequacy to receive sedatives. The heart rate, respiratory rate, oxygen saturations, blood pressure, adequacy of pulmonary ventilation, and response to care were monitored throughout the procedure. The physical status of the patient was re-assessed after the procedure. After obtaining informed consent, the scope was passed under direct vision. Throughout the procedure, the patient's blood pressure, pulse, and oxygen saturations were monitored continuously. The Scope was introduced through the mouth, and advanced to the duodenum and used to inject contrast into the bile duct. The ERCP was accomplished without difficulty. The patient tolerated the procedure well. Findings: The configuration specialist film was normal. The esophagus was successfully intubated under direct vision. The scope was advanced to a normal major papilla in the descending duodenum without detailed examination of the pharynx, larynx and associated structures, and upper GI tract. The upper GI tract was grossly normal. The ventral pancreatic duct was inadvertently cannulated without any complications. The wire was kept in place to assist in biliary cannulation. Despite multiple attempts, the bile duct could not be cannulated with sphincterotome. Biliary sphincterotomy was made with a monofilament needle knife using a freehand technique using ERBE electrocautery. There was no post-sphincterotomy bleeding. A 0.035 inch straight standard wire was passed into the biliary tree. The Fusion OMNI sphincterotome was passed over the guidewire and the bile duct was then deeply cannulated. Contrast was injected. I personally interpreted the bile duct images. There was brisk flow of contrast through the ducts. Image quality was adequate. Contrast extended to the main bile duct. The main bile duct was dilated. The largest diameter was 8 mm. The lower third of the main bile duct contained one stone. The biliary sphincterotomy was extended with a monofilament traction (standard) sphincterotome using ERBE electrocautery. The sphincterotomy oozed blood which stopped by balloon tamponade. The biliary tree was swept with an 11.5 mm balloon starting at the bifurcation. One stone was removed. No stones remained. One 5 Fr by 9 cm plastic pancreatic stent with a single external pigtail and no internal flaps was placed into the ventral pancreatic duct. Clear fluid flowed through the stent. The stent was in good position. One 10 Fr by 7 cm plastic biliary stent with a single external flap and a single internal flap was placed into the common bile duct. Bile flowed through the stent. The stent was in good position. Indomethacin 100 mg was given via suppository to decrease the risk of post-ERCP pancreatitis (PEP). Impression: - The entire main bile duct was dilated. - Choledocholithiasis was found. Complete removal was accomplished by biliary sphincterotomy and balloon extraction. - One plastic pancreatic stent was placed into the ventral pancreatic duct. - One plastic biliary stent was placed into the common bile duct. Recommendation: - Avoid aspirin and nonsteroidal anti-inflammatory medicines for 5 days. - Return patient to hospital [facility] for ongoing care. - Clear liquid diet. - Repeat ERCP in 4 weeks to remove stents. - Cholecystectomy per surgery. - IV PPI/ Antiemetics. Fabian Robledo MD 10/18/2018 10:12:33 PM This report has been signed electronically. Note Initiated On: 10/18/2018 8:28 PM Number of Addenda: 0 I attest to the content of the Intraoperative Record and orders documented therein, exceptions below {[id number]}
[2018-10-18] MEDS: FAMOTIDINE 20 MG in SYRINGE 3 ML IV SCH (22:25)
--- NOTE | 2018-10-19 00:04 | Anesthesiology Progress Note ---
Date of Service October 19, 2018 Anesthesia Post Procedure Vital Signs Vital Signs: Temp Pulse Pulse Pulse Resp BP Pulse Ox 10/18/18 23:50 36.7 C 77 18 170/90 H 95 10/18/18 23:20 36.7 C 70 18 166/89 H 96 10/18/18 22:35 36.2 C L 78 19 168/81 H 94 10/18/18 22:25 80 17 153/81 H 94 10/18/18 22:15 80 21 159/82 H 98 10/18/18 22:05 85 22 163/89 H 96 10/18/18 21:59 36.0 C L 90 21 157/88 H 96 10/18/18 19:51 36.5 C 77 18 166/78 H 90 10/18/18 16:38 36.7 C 79 19 186/99 H 95 10/18/18 13:00 36.8 C 70 18 157/77 H 91 10/18/18 06:19 36.6 C 63 16 160/79 H 94 10/18/18 04:48 67 18 114/90 98 10/18/18 03:42 68 18 169/90 H 93 10/18/18 02:35 68 18 186/78 H 98 Pain Intensity Chest: Pain Intensity: 6 Transfer of Care Handoff Completed per policy Notes Mental Status: alert / awake / arousable Patient Amnestic to Procedure: Yes Nausea / Vomiting: adequately controlled Pain: adequately controlled Airway Patency, RR, SpO2: stable & adequate BP & HR: stable & adequate Hydration State: stable & adequate Anesthetic Complications: no major complications apparent
[2018-10-19] MEDS ORDERED: GLUCAGON FOR INJ 1 MG VIAL ONE (00:29)
[2018-10-19] MEDS: PIPERACILLIN/TAZOBACTAM 3.375 GM in DEXTROSE 5% 100 ML IV SCH ×3 (04:44→20:28)
[2018-10-19 06:31] LABS: Alanine Aminotransferase 106 U/L (12-78); Albumin Level 3.3 gm/dl (3.4-5.0); Aspartate Aminotransferase 75 U/L (15-37); BUN Creatinine Ratio 13.1 (10-20); Blood Urea Nitrogen 12 mg/dl (7-18); Calcium 8.7 mg/dl (8.5-10.1); Carbon Dioxide 26 mmol/L (21-32); Chloride 103 mmol/L (98-107); Est GFR (African American) 71.5; Est GFR (Non-African American) 61.7; Glucose 164 mg/dl (70-99); Potassium 3.9 mmol/L (3.5-5.1); Sodium 136 mmol/L (136-145)
[2018-10-19] MEDS: ACETAMINOPHEN 325 MG TAB PO PRN (06:32)
[2018-10-19 06:34] LABS: Albumin Globulin Ratio 0.9 (0.9-2); Alkaline Phosphatase 75 U/L (45-117); Bilirubin,Total 0.5 mg/dl (0.2-1); Globulin 3.7 gm/dl (2.5-4.0)
[2018-10-19 06:35] LABS: Hematocrit (blood only) 42.7 % (37-47); Hemoglobin 14.6 g/dL (12.0-16.0); Immature Granulocytes # (auto) 0.04 K/uL (0.00-0.02); Immature Granulocytes % (auto) 0.2 %; Lymphocytes # (auto) 0.59 K/uL (1.2-3.4); Lymphocytes % (auto) 3.7 %; Mean Corpuscular Hgb Conc 34.2 g/dL (32-36); Mean Corpuscular Volume 87.3 fL (80-100); Mean Platelet Volume 10.2 fL (7.4-10.4); Monocytes % (auto) 3.1 %; Neutrophils # (auto) 14.92 K/uL (1.4-6.5); Platelet Count 168 K/uL (130-400); RDW Standard Deviation 41.5 fL (36.4-46.3); Red Blood Count 4.89 M/uL (4.2-5.4); White Blood Count 16.05 K/uL (4.8-10.8)
[2018-10-19] MEDS: ASPIRIN 81 MG ECTAB PO SCH (08:37)
[2018-10-19] MEDS: dilTIAZem HCL 180 MG CAPCR PO SCH (08:38)
[2018-10-19] MEDS: LACTATED RINGER'S 1,000 ML IV SCH ×3 (08:46→20:37)
[2018-10-19] MEDS: FAMOTIDINE 20 MG in SYRINGE 3 ML IV SCH ×2 (08:47→20:28)
--- NOTE | 2018-10-19 08:47 | Gastroenterology Progress Note ---
Date of Service October 19, 2018 Assessment & Plan (1) Choledocholithiasis with acute cholecystitis: Patient underwent ERCP yesterday evening and had both the biliary and pancreatic stent placed. Her white blood cell count is somewhat elevated today however, the patient has no abdominal discomfort. At this point I would recommend continued IV hydration, continued IV antibiotic use and advancing her diet today. If the patient is feeling well on Sunday she likely can be discharged for outpatient follow-up with her surgeon and Dr. Robledo Recommendations Continue IV hydration and intravenous antibiotics today Advance diet as tolerated Daily labs to include CBC and a comprehensive metabolic panel If patient doing well on Sunday early discharge could be considered from our perspective Subjective The patient underwent ERCP yesterday evening and was found to have a stone in the common bile duct. It appears the procedure was somewhat complicated and she required placement of both the biliary and pancreatic stent. The patient notes that she is tired this morning but denies any abdominal discomfort. Review of Systems Constitutional: no sweats and no malaise Eyes: no diplopia Respiratory: no change in sputum and no hemoptysis Cardiovascular: no chest pain with activity Physical Exam Constitutional: well developed and well nourished ENMT: No scleral icterus Respiratory: normal respiratory effort, lungs clear to auscultation Cardiovascular: RRR, no murmur, no edema Gastrointestinal (Abdomen): Inspection/Auscultation: normal bowel sounds; abdomen not distended Percussion/Palpation: abdomen soft; abdomen nontender Results & Data Vital Signs (Past 12 Hours) Vital Signs Temp Pulse Pulse Resp BP Pulse Ox 10/19/18 07:30 36.8 C 69 18 141/73 H 93 10/19/18 05:14 36.7 C 82 18 155/82 H 96 10/19/18 01:51 36.7 C 77 18 157/81 H 96 10/19/18 00:50 36.7 C 75 18 168/82 H 96 10/18/18 23:50 36.7 C 77 18 170/90 H 95 10/18/18 23:20 36.7 C 70 18 166/89 H 96 10/18/18 22:35 36.2 C L 78 19 168/81 H 94 10/18/18 22:25 80 17 153/81 H 94 10/18/18 22:15 80 21 159/82 H 98 10/18/18 22:05 85 22 163/89 H 96 10/18/18 21:59 36.0 C L 90 21 157/88 H 96 Laboratory Results Laboratory Results - last 24 hr 10/18/18 10/18/18 10/19/18 01:25 12:05 06:01 WBC Cancelled RBC Cancelled Hgb Cancelled Hct Cancelled MCV Cancelled MCH Cancelled MCHC Cancelled RDW Std Deviation Cancelled RDW Coeff of Rodolfo Cancelled Plt Count Cancelled MPV Cancelled Immature Gran % (Auto) Cancelled Neut % (Auto) Cancelled Lymph % (Auto) Cancelled [place] % (Auto) Cancelled Eos % (Auto) Cancelled Baso % (Auto) Cancelled Immature Gran # (Auto) Cancelled Neut # (Auto) Cancelled Lymph # (Auto) Cancelled [place] # (Auto) Cancelled Eos # (Auto) Cancelled Baso # (Auto) Cancelled Absolute Nucleated RBC Cancelled Nucleated RBC % (auto) Cancelled Neutrophils % (Manual) Cancelled Band Neutrophils % Cancelled Lymphocytes % (Manual) Cancelled Prolymphocyte % Cancelled Reactive Lymphs % (Man) Cancelled Monocytes % (Manual) Cancelled Eosinophils % (Manual) Cancelled Basophils % (Manual) Cancelled Metamyelocytes % (Man) Cancelled Myelocytes % (Man) Cancelled Promyelocytes % (Man) Cancelled Blast Cells % (Manual) Cancelled Plasma Cell % (Manual) Cancelled Other Cells % Cancelled Nucleated RBC % Cancelled Neutrophils # (Manual) Cancelled Band Neutrophils # Cancelled Total Absolute Neuts Cancelled Lymphocytes # (Manual) Cancelled Prolymphocyte # Cancelled Reactive Lymphs # Cancelled Total Abs Lymphocytes Cancelled Monocytes # (Manual) Cancelled Eosinophils # (Manual) Cancelled Basophils # (Manual) Cancelled Metamyelocytes # (Man) Cancelled Myelocytes # (Manual) Cancelled Promyelocytes # (Man) Cancelled Blast Cells # (Man) Cancelled Plasma Cell # (Manual) Cancelled Other Cells # Cancelled Nucleated RBCs # (Man) Cancelled Hypersegmented Neuts Cancelled Hyposegmented Neuts Cancelled Hypogranular Neuts Cancelled Large Granular Lymphs Cancelled # Lrg Granular Lymphs Cancelled Hairy Cells Cancelled Smudge Cells Cancelled Toxic Granulation Cancelled Toxic Vacuolation Cancelled Dohle Bodies Cancelled Tino Rods Cancelled Platelet Estimate Cancelled Hypogranular Platelets Cancelled Clumped Platelets Cancelled Giant Platelets Cancelled Platelet Satelliting Cancelled RBC Morphology Cancelled Polychromasia Cancelled Hypochromasia Cancelled Poikilocytosis Cancelled Basophilic Stippling Cancelled Anisocytosis Cancelled Microcytosis Cancelled Macrocytosis Cancelled Spherocytes Cancelled Pappenheimer Bodies Cancelled Sickle Cells Cancelled Target Cells Cancelled Tear Drop Cells Cancelled Ovalocytes Cancelled Stomatocytes Cancelled [place] Bodies Cancelled Echinocytes Cancelled Acanthocytes (Spur) Cancelled Rouleaux Cancelled RBC Agglutinates Cancelled Schistocytes Cancelled RBC Morph Comment Cancelled Sezary Cell Cancelled PT 9.8 INR 1.0 Sodium Potassium Chloride Carbon Dioxide Anion Gap BUN Creatinine Est Cr Clr Drug Dosing Est GFR ( Amer) Est GFR (Non-Af Amer) BUN/Creatinine Ratio Glucose POC Glucose 90 Calcium Total Bilirubin AST ALT Alkaline Phosphatase Total Protein Albumin Globulin Albumin/Globulin Ratio 10/19/18 10/19/18 06:01 06:20 WBC 16.05 H RBC 4.89 Hgb 14.6 Hct 42.7 MCV 87.3 MCH 29.9 MCHC 34.2 RDW Std Deviation 41.5 RDW Coeff of Rodolfo 13.0 Plt Count 168 MPV 10.2 Immature Gran % (Auto) 0.2 Neut % (Auto) 93.0 Lymph % (Auto) 3.7 [place] % (Auto) 3.1 Eos % (Auto) 0.0 Baso % (Auto) 0.0 Immature Gran # (Auto) 0.04 H Neut # (Auto) 14.92 H Lymph # (Auto) 0.59 L [place] # (Auto) 0.50 Eos # (Auto) 0.00 Baso # (Auto) 0.00 Absolute Nucleated RBC Nucleated RBC % (auto) Neutrophils % (Manual) Band Neutrophils % Lymphocytes % (Manual) Prolymphocyte % Reactive Lymphs % (Man) Monocytes % (Manual) Eosinophils % (Manual) Basophils % (Manual) Metamyelocytes % (Man) Myelocytes % (Man) Promyelocytes % (Man) Blast Cells % (Manual) Plasma Cell % (Manual) Other Cells % Nucleated RBC % Neutrophils # (Manual) Band Neutrophils # Total Absolute Neuts Lymphocytes # (Manual) Prolymphocyte # Reactive Lymphs # Total Abs Lymphocytes Monocytes # (Manual) Eosinophils # (Manual) Basophils # (Manual) Metamyelocytes # (Man) Myelocytes # (Manual) Promyelocytes # (Man) Blast Cells # (Man) Plasma Cell # (Manual) Other Cells # Nucleated RBCs # (Man) Hypersegmented Neuts Hyposegmented Neuts Hypogranular Neuts Large Granular Lymphs # Lrg Granular Lymphs Hairy Cells Smudge Cells Toxic Granulation Toxic Vacuolation Dohle Bodies Tino Rods Platelet Estimate Hypogranular Platelets Clumped Platelets Giant Platelets Platelet Satelliting RBC Morphology Polychromasia Hypochromasia Poikilocytosis Basophilic Stippling Anisocytosis Microcytosis Macrocytosis Spherocytes Pappenheimer Bodies Sickle Cells Target Cells Tear Drop Cells Ovalocytes Stomatocytes Mehta-[place] Bodies Echinocytes Acanthocytes (Spur) Rouleaux RBC Agglutinates Schistocytes RBC Morph Comment Sezary Cell PT INR Sodium 136 Potassium 3.9 Chloride 103 Carbon Dioxide 26 Anion Gap 7.0 BUN 12 Creatinine 0.90 Est Cr Clr Drug Dosing Not Reportable Est GFR ( Amer) 71.5 Est GFR (Non-Af Amer) 61.7 BUN/Creatinine Ratio 13.1 Glucose 164 H POC Glucose Calcium 8.7 Total Bilirubin 0.5 AST 75 H ALT 106 H Alkaline Phosphatase 75 Total Protein 7.0 Albumin 3.3 L Globulin 3.7 Albumin/Globulin Ratio 0.9
[2018-10-19] MEDS ORDERED: ENOXAPARIN INJ 40 MG/0.4 ML SYR SQ SCH (09:00)
--- NOTE | 2018-10-19 14:04 | Surgery Progress Note ---
Date of Service October 19, 2018 Assessment & Plan (1) Choledocholithiasis with acute cholecystitis: Pt seen and examined with Dr. Sheets. Plan for patient to have Cholecystectomy on Sunday with [facility] Surgery [facility]. Advance diet to clear liquids. Subjective Patient resting comfortably in bed with significant other at bedside. Patient underwent ERCP yesterday- stone in common bile duct. Biliary and pancreatic stent placed. Patient denies abdominal pain today. Denies nausea. Physical Exam Gastrointestinal (Abdomen): Percussion/Palpation: abdomen soft; abdomen nontender Results & Data Vital Signs (Past 12 Hours) Vital Signs Temp Pulse Resp BP Pulse Ox 10/19/18 07:30 36.8 C 69 18 141/73 H 93 10/19/18 05:14 36.7 C 82 18 155/82 H 96
[2018-10-20] MEDS: PIPERACILLIN/TAZOBACTAM 3.375 GM in DEXTROSE 5% 100 ML IV SCH ×3 (04:04→20:32)
[2018-10-20] MEDS: LACTATED RINGER'S 1,000 ML IV SCH ×3 (04:09→23:36)
[2018-10-20] MEDS: ACETAMINOPHEN 325 MG TAB PO PRN (06:22)
[2018-10-20 06:38] LABS: Basophils # (auto) 0.02 K/uL (0-0.2); Basophils % (auto) 0.2 %; Eosinophils # (auto) 0.02 K/uL (0-0.5); Eosinophils % (auto) 0.2 %; Hematocrit (blood only) 37.2 % (37-47); Hemoglobin 12.4 g/dL (12.0-16.0); Immature Granulocytes # (auto) 0.05 K/uL (0.00-0.02); Immature Granulocytes % (auto) 0.4 %; Lymphocytes # (auto) 1.26 K/uL (1.2-3.4); Mean Corpuscular Hgb Conc 33.3 g/dL (32-36); Mean Corpuscular Volume 87.1 fL (80-100); Mean Platelet Volume 10.5 fL (7.4-10.4); Monocytes # (auto) 0.69 K/uL (0.11-0.59); Neutrophils # (auto) 9.42 K/uL (1.4-6.5); Neutrophils % (auto) 82.2 %; Platelet Count 182 K/uL (130-400); RDW Coefficient of Variation 13.3 % (11.5-14.5); RDW Standard Deviation 42.4 fL (36.4-46.3); Red Blood Count 4.27 M/uL (4.2-5.4); White Blood Count 11.46 K/uL (4.8-10.8)
[2018-10-20 07:07] LABS: Albumin Level 3.1 gm/dl (3.4-5.0); BUN Creatinine Ratio 14.4 (10-20); Calcium 8.7 mg/dl (8.5-10.1); Creatinine Clr Calc Pharmacy 57.4 ml/min; Est GFR (African American) 73.5; Est GFR (Non-African American) 63.4; Potassium 3.7 mmol/L (3.5-5.1)
[2018-10-20 07:09] LABS: Albumin Globulin Ratio 0.9 (0.9-2); Bilirubin,Total 0.4 mg/dl (0.2-1); Globulin 3.4 gm/dl (2.5-4.0); Total Protein 6.5 gm/dl (6.4-8.2)
--- NOTE | 2018-10-20 09:21 | Surgery Progress Note ---
Date of Service October 20, 2018 Assessment & Plan (1) Choledocholithiasis with acute cholecystitis: POD 2 ERCP WBC improved plan for lap rickey tomorrow seen with Dr. Sheets Subjective c/o sore mouth/throat from ERCP Physical Exam Gastrointestinal (Abdomen): Percussion/Palpation: abdomen soft; abdomen nontender Results & Data Vital Signs (Past 12 Hours) Vital Signs Temp Pulse Resp BP Pulse Ox 10/20/18 07:22 36.5 C 80 18 155/80 H 94 10/19/18 23:35 36.6 C 69 16 147/81 H 94
--- NOTE | 2018-10-20 09:30 | Gastroenterology Progress Note ---
Date of Service October 20, 2018 Assessment & Plan (1) Choledocholithiasis with acute cholecystitis: Patient status post ERCP on Sunday evening for choledocholithiasis. She seems to be doing well from our perspective. Recommendations Repeat ERCP in 4 to 6 weeks for stent removal Cholecystectomy per general surgery GI to sign off Subjective Patient status post ERCP on Sunday evening now with improvement of her abdominal discomfort. It appears that her cholecystectomy is pending for Sunday. Review of Systems Constitutional: no sweats Eyes: no diplopia Respiratory: no change in sputum Cardiovascular: no chest pain with activity Physical Exam Constitutional: WD/WN, vitals as above Eyes: PERRL, conjunctivae normal, anicteric sclerae Respiratory: normal respiratory effort, lungs clear to auscultation Cardiovascular: Rate/Rhythm: regular rhythm Gastrointestinal (Abdomen): Percussion/Palpation: abdomen soft; abdomen nontender and no guarding Results & Data Vital Signs (Past 12 Hours) Vital Signs Temp Pulse Resp BP Pulse Ox 10/20/18 07:22 36.5 C 80 18 155/80 H 94 10/19/18 23:35 36.6 C 69 16 147/81 H 94 Laboratory Results Laboratory Results - last 24 hr 10/20/18 10/20/18 05:58 05:58 WBC 11.46 H RBC 4.27 Hgb 12.4 Hct 37.2 MCV 87.1 MCH 29.0 MCHC 33.3 RDW Std Deviation 42.4 RDW Coeff of Rodolfo 13.3 Plt Count 182 MPV 10.5 H Immature Gran % (Auto) 0.4 Neut % (Auto) 82.2 Lymph % (Auto) 11.0 [place] % (Auto) 6.0 Eos % (Auto) 0.2 Baso % (Auto) 0.2 Immature Gran # (Auto) 0.05 H Neut # (Auto) 9.42 H Lymph # (Auto) 1.26 [place] # (Auto) 0.69 H Eos # (Auto) 0.02 Baso # (Auto) 0.02 Sodium 141 Potassium 3.7 Chloride 108 H Carbon Dioxide 29 Anion Gap 4.0 BUN 13 Creatinine 0.88 Est Cr Clr Drug Dosing 57.4 Est GFR ( Amer) 73.5 Est GFR (Non-Af Amer) 63.4 BUN/Creatinine Ratio 14.4 Glucose 111 H Calcium 8.7 Total Bilirubin 0.4 AST 33 ALT 74 Alkaline Phosphatase 63 Total Protein 6.5 Albumin 3.1 L Globulin 3.4 Albumin/Globulin Ratio 0.9
[2018-10-20] MEDS: dilTIAZem HCL 180 MG CAPCR PO SCH (09:32)
[2018-10-20] MEDS: ASPIRIN 81 MG ECTAB PO SCH (09:32)
[2018-10-20] MEDS: FAMOTIDINE 20 MG in SYRINGE 3 ML IV SCH ×2 (09:32→20:32)
[2018-10-21] MEDS: PIPERACILLIN/TAZOBACTAM 3.375 GM in DEXTROSE 5% 100 ML IV SCH ×2 (04:53→12:50)
[2018-10-21 05:15] LABS: Basophils # (auto) 0.02 K/uL (0-0.2); Basophils % (auto) 0.2 %; Eosinophils # (auto) 0.19 K/uL (0-0.5); Eosinophils % (auto) 2.2 %; Hemoglobin 13.2 g/dL (12.0-16.0); Immature Granulocytes # (auto) 0.05 K/uL (0.00-0.02); Immature Granulocytes % (auto) 0.6 %; Lymphocytes % (auto) 22.8 %; Mean Corpuscular Hgb Conc 33.8 g/dL (32-36); Mean Corpuscular Volume 89.7 fL (80-100); Mean Platelet Volume 10.3 fL (7.4-10.4); Monocytes # (auto) 0.61 K/uL (0.11-0.59); Neutrophils % (auto) 67.2 %; Platelet Count 170 K/uL (130-400); RDW Coefficient of Variation 13.4 % (11.5-14.5); RDW Standard Deviation 44.3 fL (36.4-46.3); Red Blood Count 4.35 M/uL (4.2-5.4); White Blood Count 8.77 K/uL (4.8-10.8)
[2018-10-21] MEDS: ACETAMINOPHEN 325 MG TAB PO PRN (05:31)
[2018-10-21 05:33] LABS: Albumin Level 3.2 gm/dl (3.4-5.0); Calcium 8.6 mg/dl (8.5-10.1); Creatinine Clr Calc Pharmacy 62.4 ml/min; Est GFR (African American) 81.2; Est GFR (Non-African American) 70.1; Potassium 3.5 mmol/L (3.5-5.1)
[2018-10-21 05:35] LABS: Bilirubin,Total 0.3 mg/dl (0.2-1); Globulin 3.3 gm/dl (2.5-4.0); Total Protein 6.5 gm/dl (6.4-8.2)
[2018-10-21] MEDS: ONDANSETRON INJ 2 MG/ML 2 ML VIAL IV PRN ×2 (08:25→20:19)
[2018-10-21] MEDS: FAMOTIDINE 20 MG in SYRINGE 3 ML IV SCH ×2 (09:16→20:16)
[2018-10-21] MEDS: LACTATED RINGER'S 1,000 ML IV SCH ×2 (09:20→18:32)
--- NOTE | 2018-10-21 10:53 | Anesthesiology Progress Note ---
Date of Service October 21, 2018 Anesthesia Post Procedure Vital Signs Vital Signs: Temp Pulse Pulse Resp BP Pulse Ox 10/21/18 07:30 36.5 C 69 16 170/82 H 92 10/21/18 06:49 36.9 C 62 18 146/74 H 93 10/20/18 23:00 37.0 C 70 18 163/82 H 94 10/20/18 15:14 36.8 C 65 17 153/81 H 92 Pain Intensity Chest: Pain Intensity: 0 Bilateral Head: Pain Intensity: 9 Notes Mental Status: alert / awake / arousable Nausea / Vomiting: improving with treatment Pain: adequately controlled Airway Patency, RR, SpO2: stable & adequate BP & HR: stable & adequate Hydration State: stable & adequate Anesthetic Complications: no major complications apparent Notes: pt complained of PONV; has been nauseas since ERCP; pt is to have laparoscopic cholecystectomy today and is concerned about nausea after case. Pt also stated her lip was very dry and cracked and wishes to use her mouth moisturizer for procedure.
[2018-10-21] MEDS ORDERED: ONDANSETRON INJ 2 MG/ML 2 ML VIAL IV PRN (13:01)
[2018-10-21] MEDS ORDERED: ePHEDrine sulfate 50 MG/ML AMP IV PRN (13:01)
[2018-10-21] MEDS ORDERED: PHENYLEPHRINE 100MCG/ML 5ML SYR IV PRN (13:01)
[2018-10-21] MEDS ORDERED: ATROPINE SULFATE 0.1 MG/ML 10ML SYR IV PRN (13:01)
[2018-10-21] MEDS ORDERED: MEPERIDINE HCL 25 MG/ML CARP IV PRN (13:01)
[2018-10-21] MEDS ORDERED: LABETALOL HCL IV 5 MG/ML 20ML IV PRN (13:01)
[2018-10-21] MEDS ORDERED: LIDOCAINE HCL 2% 2 ML VIAL/AMP(20MG/ML) INFIL ONE (13:14)
[2018-10-21] MEDS ORDERED: ROCURONIUM BROMIDE 10 MG/ML 5 ML VIAL ONE (13:14)
[2018-10-21] MEDS ORDERED: PROPOFOL IV EMULSION 10 MG/ML 20 ML VIAL IV ONE (13:14)
--- NOTE | 2018-10-21 13:24 | Anesthesiology Consultation ---
Date of Service October 21, 2018 Assessment & Plan (1) Encounter for pre-operative examination: Chart Review Chart Review: Acceptable Risk for Surgery and Patient NOT seen in Pre Admission Testing Consults Requested none History Surgery Operation Date: 10/18/18 15:15 Proposed Procedures p Endoscopic Retrograde Cholangiopancreatogram - Fabian Robledo MD Operation Date: 10/21/18 07:30 Proposed Procedures p Laparoscopic Cholecystectomy - Trevin Celestin MD Height/Weight Height: 5 ft 5 in Weight: 84.4 kg Allergies Allergy/AdvReac Type Severity Reaction Status Date / Time codeine Allergy Unknown Unknown Verified 10/18/18 03:54 adhesive AdvReac Unknown Unknown Verified 10/18/18 03:54 morphine AdvReac Unknown NAUSEA/VOMI Verified 10/18/18 03:54 TING Latex, Natural Rubber AdvReac Blister Verified 10/18/18 20:27 OPIATEAGONISTS AdvReac Mild SEVERE Uncoded 10/18/18 03:54 SEDATION Medications Home Medications Medication Instructions Recorded Confirmed Last Taken aspirin 81 mg PO DAILY 10/18/18 10/18/18 Unknown diltiazem HCl 180 mg PO DAILY 10/18/18 10/18/18 Unknown estradiol 1 patch TRANSDERMAL WK 10/18/18 10/18/18 Unknown Active Medications Generic Name Dose Route Start Last Admin Trade Name Freq PRN Reason Stop Dose Admin Acetaminophen 650 mg 10/18/18 06:18 10/21/18 05:31 Tylenol PO 11/17/18 06:17 650 mg Q6H PRN Administration MILD Pain (Scale 1,2,3) Aspirin 81 mg 10/18/18 09:00 10/20/18 09:32 Ecotrin Ectab PO 11/17/18 08:59 81 mg DAILY PAULETTE Administration Diltiazem HCl 180 mg 10/18/18 09:00 10/20/18 09:32 Cardizem Cd PO 11/17/18 08:59 180 mg DAILY PAULETTE Administration Hydromorphone HCl 0.5 mg 10/18/18 06:18 10/18/18 15:45 Dilaudid IV 11/01/18 06:17 0.5 mg Q3H PRN Administration MILD Pain (Scale 1,2,3) Lactated Ringer's 1,000 mls @ 100 mls/hr 10/18/18 06:18 10/21/18 09:20 Lr IV 11/17/18 06:17 100 mls/hr .Q10H PAULETTE Administration Piperacillin Sod/Tazobactam 115 mls @ 28.75 mls/hr 10/18/18 20:00 10/21/18 12:50 Sod 3.375 gm/ Dextrose IV 10/28/18 19:59 28.8 mls/hr Q8H PAULETTE Administration Protocol Famotidine 20 mg/ Syringe 5 mls @ 2.5 mls/min 10/18/18 22:15 10/21/18 09:16 IV 11/17/18 22:14 2.5 mls/min BID PAULETTE Administration Ondansetron HCl 4 mg 10/18/18 06:18 10/21/18 08:25 Zofran IV 11/17/18 06:17 4 mg Q4H PRN Administration Nausea And Vomiting Oxycodone/Acetaminophen 1 tab 10/18/18 06:18 10/18/18 19:59 Percocet 5mg/325mg PO 11/01/18 06:17 1 tab Q4H PRN Administration MODERATE Pain (Scale 4,5,6) NPO Date Last Intake of Fluids: 10/21/18 Time Last Intake of Fluids: 05:32 Last Intake of Fluids Comment: NPO at midnight. Per MD order patient had a sip with Tylenol 650mg PO. Date Last Intake of Solids: 10/17/18 Time Last Intake of Solids: 20:00 Past Medical History Medical History Cardiac syndrome X Breast cancer History of hysterectomy Past Family History Family History Other Family history non-contributory Past Surgical History Surgical History History of oophorectomy Social History Smoking Status: Former smoker tobacco type: cigarettes Do You Dip or Chew Tobacco: No Hx Alcohol Use: Yes Alcohol type: wine alcohol intake frequency: 0-2 drinks per day Hx Substance Use: No Physical Exam Vital Signs Last Vital Signs Temp 36.5 C 10/21/18 11:50 Pulse 66 10/21/18 11:50 Resp 17 10/21/18 11:50 BP 173/77 H 10/21/18 11:50 Pulse Ox 92 10/21/18 11:50 Testing Laboratory Results 10/21/18 05:03 10/21/18 05:03 PT 9.8 Seconds (9.0-12.0) 10/18/18 01:25 INR 1.0 (0.9-1.1) 10/18/18 01:25 Electrocardiogram Findings: + NSR @ Chest X-Ray Findings: + NAD
[2018-10-21] MEDS ORDERED: fentaNYL citrate 100 MCG/2 ML VIAL ONE ×3 (14:15→15:58)
[2018-10-21] MEDS ORDERED: LIDOCAINE HCL 1% 20 ML VIAL ONE (14:24)
[2018-10-21] MEDS ORDERED: BACITRACIN OINT 15 GM TUBE ONE (14:24)
[2018-10-21] MEDS ORDERED: BUPIVACAINE 0.5 % 5 MG/1 ML MPF 30ML VIAL ONE (14:24)
[2018-10-21] MEDS ORDERED: CONRAY 60% 50 ML VIAL ONE (14:24)
--- NOTE | 2018-10-21 14:24 | History & Physical Bridge Note ---
Date of Service October 21, 2018 History & Physical Bridge Note I have examined the patient, reviewed the History & Physical and in the interval since the performance of the History & Physical I have noted the following changes of clinical significance: no changes noted Supervising Physician Co-Signing Physician Notes I have personally seen and examined the patient with COURT Morin. Her note reflects my exam and findings. I agree with her impression and plan. Needs ERCP to remove stone and than Lap Ratna. Rodger Liriano M.D.
[2018-10-21] MEDS ORDERED: ONDANSETRON INJ 2 MG/ML 2 ML VIAL ONE (15:12)
[2018-10-21] MEDS ORDERED: LABETALOL HCL IV 5 MG/ML 20ML IV ONE (15:12)
[2018-10-21] MEDS ORDERED: DEXAMETHASONE SOD INJ 4 MG/ML VIAL ONE (15:12)
[2018-10-21] MEDS ORDERED: NEOSTIGMINE METHYLSULFATE 5 MG/5 ML SYR ONE (16:40)
[2018-10-21] MEDS ORDERED: GLYCOPYRROLATE 0.2 MG/ML VIAL ONE (16:40)
--- NOTE | 2018-10-21 16:48 | Post Operative Brief Note ---
Immediate Post Op Note v1 Date of Surgery October 21, 2018 Pre & Post Diagnosis Operation Date: 10/18/18 15:15 Pre-Op Diagnosis: common bile duct stone Post-Op Diagnosis: common bile duct stone Operation Date: 10/21/18 07:30 Pre-Op Diagnosis: ACUTE CHOLECYSTITIS, cholelithiasis Post-Op Diagnosis: ACUTE CHOLECYSTITIS, cholelithiasis Procedure Operation Date: 10/18/18 15:15 Actual Procedures p Endoscopic Retrograde Cholangiopancreatogram(Not Applicable) - Fabian Robledo MD Operation Date: 10/21/18 07:30 Actual Procedures p Laparoscopic Cholecystectomy(Not Applicable) - Trevin Celestin MD Surgeon Trevin Celestin MD Personnel Assistant ophthalmic surgical assistant Estimated Blood Loss 30 Findings Consistent with Post-Op Diagnosis significant inflammation on gallbladder wall, Fluids 1100ml Specimens gallbladder Drains Brian-Gonzalez Drain Anesthesia Type General Complications none Disposition Accompanied Patient To Recovery: Yes Disposition: Recovery Room Overlapping Procedure I was immediately available: during the entire case.
[2018-10-21] MEDS: fentaNYL citrate 100 MCG/2 ML VIAL IV PRN ×4 (17:03→17:18)
--- NOTE | 2018-10-21 17:40 | Anesthesiology Progress Note ---
Date of Service October 21, 2018 Anesthesia Post Procedure Vital Signs Vital Signs: Temp Pulse Pulse Resp BP BP Pulse Ox 10/21/18 17:35 97.3 F L 56 L 13 167/74 H 92 10/21/18 17:25 59 L 22 166/78 H 91 10/21/18 17:15 64 14 187/86 H 92 10/21/18 17:05 71 14 189/94 H 94 10/21/18 16:55 97.2 F L 68 12 181/93 H 95 10/21/18 13:29 66 20 183/86 H 93 10/21/18 11:50 97.7 F 66 17 173/77 H 92 10/21/18 07:30 97.7 F 69 16 170/82 H 92 10/21/18 06:49 98.4 F 62 18 146/74 H 93 10/20/18 23:00 98.6 F 70 18 163/82 H 94 Pain Intensity Chest: Pain Intensity: 0 Bilateral Head: Pain Intensity: 4 Abdomen: Pain Intensity: 6 Transfer of Care Handoff Completed per policy Notes Mental Status: alert / awake / arousable and participated in evaluation Patient Amnestic to Procedure: Yes Nausea / Vomiting: adequately controlled Pain: adequately controlled Airway Patency, RR, SpO2: stable & adequate BP & HR: stable & adequate Hydration State: stable & adequate Anesthetic Complications: no major complications apparent and Pt Satisfied with anesthetic care
[2018-10-21] MEDS ORDERED: ESTRADIOL TRANSDERMAL SYSTEM 0.1 MG TDSY TD SCH (18:30)
[2018-10-21] MEDS: dilTIAZem HCL 180 MG CAPCR PO SCH (18:35)
[2018-10-21] MEDS: ASPIRIN 81 MG ECTAB PO SCH (18:35)
[2018-10-21] MEDS: HYDROmorphone INJ 0.5 MG/0.5 ML SYR IV PRN (18:52)
[2018-10-22] MEDS: ACETAMINOPHEN 325 MG TAB PO PRN (00:02)
--- NOTE | 2018-10-22 00:35 | Operative Report ---
DATE OF OPERATION: 10/21/2018 PREOPERATIVE DIAGNOSES: Acute cholecystitis, cholelithiasis. POSTOPERATIVE DIAGNOSES: Acute cholecystitis, cholelithiasis. PROCEDURE: Laparoscopic cholecystectomy, JOHN drainage x1. SURGEON: Trevin Celestin MD. ANESTHESIA: General. ESTIMATED BLOOD LOSS: About 30 mL. FINDINGS: Significant inflammation on the gallbladder wall, gallbladder wall thickening, edema, multiple gallstones. COMPLICATIONS: None. INDICATIONS FOR THE PROCEDURE: This is a 78-year-old female who was admitted to hospital for acute cholecystitis and patient is a post ERCP and the patient required to do laparoscopic cholecystectomy, possible open, possible cholangiogram. I did talk to the patient and patient's about the benefit and risk, alternate procedure. I indicated the risks may include but not limited such as bleeding, infection, injury to common bile duct, injury to the bowel, bile leak, myocardial infarction, DVT, stroke or even . They understand. The patient signed informed consent and I answered all questions. DETAILS OF PROCEDURE: We brought the patient to the OR, put the patient in the supine position. The patient received SCD on bilateral legs to prevent DVT. Also, patient received 3.375 grams Zosyn IV for prophylactic antibiotic. The patient received general anesthesia without difficulty. His abdomen was prepped and draped in routine sterile fashion. After timeout, I injected local anesthesia by using 1% lidocaine mixed with 0.5% Marcaine just above umbilicus. Then I used the old incision just above umbilicus, about 1.5 cm incision, opened fascia, opened peritoneum under direct vision, put a Anny trocar in, connected to CO2 to create pneumoperitoneum. Flow rate is 6 liter per minute. Pressure not more than 14 mmHg. Once we got a nice pneumoperitoneum, we put a camera in, looked around the abdomen, shows normal finding on the liver. However, the gallbladder showed significant inflammation, gallbladder wall thickening, edema, omental adhesions to the gallbladder. The gallbladder had significant distention. Then, we put another two 5 mm trocar on the right upper quadrant under direct vision and put another 11 trocar on the epigastric area. Once all trocars were in, we used a grasper to hold the base of gallbladder and put in direction to the diaphragm, another grasper pedal down the omentum that covers the gallbladder. Hold the pouch of gallbladder, pulled lateral to expose the triangle of [place]. There was cystic duct that was identified and mobilized. I put two 10 mm metal clips on the proximal cystic duct, one on the distal cystic duct. I then used a scissor for transection of cystic duct. Rechecked and no bile leak and no active bleeding. The cystic artery was identified and mobilized. I put two 10 mm metal clip on the proximal cystic artery, one on the distal cystic duct artery and used the scissor for transecting cystic duct artery. Rechecked, no active bleeding. Then we used the Bovie to take down the gallbladder from the liver bed and based on the patient had significant inflammation on the gallbladder wall, we take down the gallbladder from the liver bed using the Bovie. Based on the inflammation, I put one 10 mm JOHN drainage in, in the liver bed. I used a suture to fix the drainage around the skin by using 3-0 nylon. Then we removed gallbladder through the catch bag and then we reinserted the Anny trocar in, connected to CO2 to create pneumoperitoneum, again looked around abdomen, no active bleeding, no bile leak from the liver bed. Then we removed all trocars under direct vision and noted no active bleeding from the trocar sites. Pneumoperitoneum was reduced, then I closed the umbilical incision, fascial layer by using #1 Vicryl [id number] x2, closed subcutaneous layer by using 2-0 Vicryl interrupted, closed skin by using 4-0 Vicryl continuous running, closed another two 5 mm trocar site to skin only by using 4-0 Vicryl, closed the epigastric area 11 trocar site fascial layer by using #1 Vicryl [id number] x2, closed subcutaneous layer by using 2-0 Vicryl interrupted, closed skin by using 4-0 Vicryl interrupted, we put the dressing on. The patient tolerated the procedure well. All instrument, needle and sponge count were correct x2 at the end the case. The patient transferred to recovery room in stable condition. The specimen sent to pathology. After procedure, I did talk to the patient's about the OR finding and procedure we did, he understands. I attest to the content of the Intraoperative Record and any orders documented therein. Any exceptions are noted below. LEOPOLDO
[2018-10-22 05:02] LABS: Basophils # (auto) 0.01 K/uL (0-0.2); Basophils % (auto) 0.1 %; Hematocrit (blood only) 39.6 % (37-47); Hemoglobin 13.3 g/dL (12.0-16.0); Immature Granulocytes # (auto) 0.09 K/uL (0.00-0.02); Immature Granulocytes % (auto) 0.9 %; Lymphocytes # (auto) 0.68 K/uL (1.2-3.4); Lymphocytes % (auto) 6.7 %; Mean Corpuscular Hgb Conc 33.6 g/dL (32-36); Mean Corpuscular Volume 89.2 fL (80-100); Mean Platelet Volume 10.3 fL (7.4-10.4); Monocytes # (auto) 0.29 K/uL (0.11-0.59); Monocytes % (auto) 2.9 %; Neutrophils # (auto) 9.01 K/uL (1.4-6.5); Neutrophils % (auto) 89.4 %; Platelet Count 203 K/uL (130-400); RDW Coefficient of Variation 13.3 % (11.5-14.5); RDW Standard Deviation 43.3 fL (36.4-46.3); Red Blood Count 4.44 M/uL (4.2-5.4); White Blood Count 10.08 K/uL (4.8-10.8)
[2018-10-22 05:22] LABS: Albumin Level 3.1 gm/dl (3.4-5.0); BUN Creatinine Ratio 12.9 (10-20); Calcium 8.4 mg/dl (8.5-10.1); Creatinine Clr Calc Pharmacy 56.2 ml/min; Est GFR (African American) 71.5; Est GFR (Non-African American) 61.7; Potassium 3.8 mmol/L (3.5-5.1)
[2018-10-22 05:24] LABS: Albumin Globulin Ratio 0.9 (0.9-2); Bilirubin,Total 0.3 mg/dl (0.2-1); Globulin 3.5 gm/dl (2.5-4.0); Total Protein 6.6 gm/dl (6.4-8.2)
--- NOTE | 2018-10-22 08:06 | Anesthesiology Progress Note ---
Date of Service October 22, 2018 Anesthesia Post Procedure Vital Signs Vital Signs: Temp Pulse Pulse Pulse Resp BP BP 10/22/18 03:49 36.6 C 67 16 145/78 H 10/21/18 23:17 36.7 C 74 16 145/77 H 10/21/18 21:09 36.9 C 84 18 175/95 H 10/21/18 20:07 37.0 C 73 17 164/77 H 10/21/18 19:18 36.7 C 77 18 155/83 H 10/21/18 18:30 36.5 C 68 17 179/83 H 10/21/18 18:00 36.6 C 62 16 184/76 H 10/21/18 17:45 57 L 15 154/80 H 10/21/18 17:35 36.3 C L 56 L 13 167/74 H 10/21/18 17:25 59 L 22 166/78 H 10/21/18 17:15 64 14 187/86 H 10/21/18 17:05 71 14 189/94 H 10/21/18 16:55 36.2 C L 68 12 181/93 H 10/21/18 13:29 66 20 183/86 H 10/21/18 11:50 36.5 C 66 17 173/77 H Pulse Ox 10/22/18 03:49 93 10/21/18 23:17 92 10/21/18 21:09 93 10/21/18 20:07 94 10/21/18 19:18 93 10/21/18 18:30 93 10/21/18 18:00 90 10/21/18 17:45 93 10/21/18 17:35 92 10/21/18 17:25 91 10/21/18 17:15 92 10/21/18 17:05 94 10/21/18 16:55 95 10/21/18 13:29 93 10/21/18 11:50 92 Pain Intensity Chest: Pain Intensity: 0 Bilateral Head: Pain Intensity: 2 Abdomen: Pain Intensity: 0 Notes Mental Status: alert / awake / arousable and participated in evaluation Patient Amnestic to Procedure: Yes Nausea / Vomiting: adequately controlled Pain: adequately controlled Airway Patency, RR, SpO2: stable & adequate BP & HR: stable & adequate Hydration State: stable & adequate Anesthetic Complications: no major complications apparent and Pt Satisfied with anesthetic care
[2018-10-22] MEDS: FAMOTIDINE 20 MG in SYRINGE 3 ML IV SCH ×2 (09:07→20:40)
[2018-10-22] MEDS: ASPIRIN 81 MG ECTAB PO SCH (09:08)
[2018-10-22] MEDS: dilTIAZem HCL 180 MG CAPCR PO SCH (09:39)
[2018-10-22] MEDS: LACTATED RINGER'S 1,000 ML IV SCH (10:59)
--- NOTE | 2018-10-22 12:04 | Surgery Progress Note ---
Date of Service Follow up S/P lap rickey, POD 1 pt is doing much better, she tolerated clear diet, no abdominal pain, no nausea, no vomiting, no BM for 3 days, but passed gas, October 22, 2018 Assessment & Plan (1) Choledocholithiasis with acute cholecystitis: Patient is a 78 year-old female who presented to emergency department early this morning with complaint of upper abdominal pain with radiation to her back and associated nausea that suddenly woke her up. Recent diagnosis of breast cancer stage 1 (consultation with surgeon at [facility] yesterday). 7 weeks s/p bilateral laparoscopic oophorectomy for bilateral ovarian cysts. Pathology without any carcinoma. ER work-up showed normal labs however ultrasound showing distended gallbladder, stones, evidence of acute cholecystitis, and choledocholithiasis. Abdomen is soft, nontender on examination this morning. Plan: Given evidence of choledocholithiasis on ultrasound, consult GI for ERCP. Discussed with patient findings of acute cholecystitis and recommendation for cholecystectomy given pain and choledocholithiasis. Discussed the options of cholecystectomy timing either as an inpatient or scheduled as an outpatient. Dr Celestin prefers not to do cholecystectomy at same time of ERCP given prolonged anesthesia. Discussed option of inpatient cholecystectomy on Sunday vs outpatient cholecystectomy if she stays stable and pain controlled after ERCP. At this time her and her would like to schedule for cholecystectomy on Sunday. Discussed with patient laparoscopic approach to the surgery. Continue NPO status for ERCP today Continue IV pain management as needed Continue IV Zofran as needed Continue IV Unasyn SCDs, will add Lovenox SQ for DVT prophylaxis after ERCP May have clear liquids and advance to low fat diet after ERCP up until Sunday at midnight NPO Sunday after midnight Hold Lovenox starting Sunday at midnight follow labs over weekend If she were to decide for outpatient cholecystectomy, would recommend PO Cipro for 7 days and close follow-up with Dr. Celestin early next week to schedule cholecy stectomy. Dr. Sheets covering this weekend Dr. Celestin has seen and examined patient, agrees with above. 10/22/2018 12:01PM doing fine, tolerated clear diet, update about OR finding and the procedure pt had, I answered all questions, regular diet, stool softner may D/C home tomorrow, Subjective Patient status post ERCP on Sunday evening now with improvement of her abdominal discomfort. It appears that her cholecystectomy is pending for Sunday. Physical Exam Constitutional: WD/WN, vitals as above Neck: trachea midline, no thyromegaly Respiratory: normal respiratory effort, lungs clear to auscultation Cardiovascular: RRR, no murmur, no edema Rate/Rhythm: regular rate and regular rhythm Gastrointestinal (Abdomen): Percussion/Palpation: abdomen soft NT, ND, all dressing intact, Neurologic: awake Psychiatric: Orientation: alert and oriented x 3 Results & Data Vital Signs (Past 12 Hours) Vital Signs Temp Pulse Pulse Resp BP Pulse Ox 10/22/18 08:14 36.7 C 70 16 156/75 H 93 10/22/18 03:49 36.6 C 67 16 145/78 H 93 Laboratory Results Abnormal lab results 10/22/18 10/22/18 Range/Units 04:37 04:37 Immature Gran # (Auto) 0.09 H (0.00-0.02) K/uL Neut # (Auto) 9.01 H (1.4-6.5) K/uL Lymph # (Auto) 0.68 L (1.2-3.4) K/uL Glucose 148 H (70-99) mg/dl Calcium 8.4 L (8.5-10.1) mg/dl Albumin 3.1 L (3.4-5.0) gm/dl
[2018-10-22] MEDS ORDERED: BISACODYL 10 MG SUPP PR STA (12:05)
[2018-10-22] MEDS ORDERED: POLYETHYLENE (MIRALAX) 17 GM PACK PO ONE (12:15)
[2018-10-22] MEDS: OXYCODONE/ACETAMINOPHEN 5mg/325mg TAB PO PRN (16:00)
[2018-10-23] MEDS: ACETAMINOPHEN 325 MG TAB PO PRN ×2 (05:04→12:25)
[2018-10-23] MEDS: ASPIRIN 81 MG ECTAB PO SCH (08:52)
[2018-10-23] MEDS: dilTIAZem HCL 180 MG CAPCR PO SCH (08:52)
[2018-10-23] MEDS: FAMOTIDINE 20 MG in SYRINGE 3 ML IV SCH (08:52)
[2018-10-23] MEDS ORDERED: BISACODYL 5 MG TABEC PO ONE (09:24)
[2018-10-23] MEDS ORDERED: POLYETHYLENE (MIRALAX) 17 GM PACK PO SCH (09:30)
--- NOTE | 2018-10-23 09:38 | Surgery Progress Note ---
Date of Service she tolertaed regular diet, no abdominal pain, no nausea, no vomiting, no bm yet, JOHN 60ml/24h, clear. October 23, 2018 Assessment & Plan (1) Choledocholithiasis with acute cholecystitis: Patient is a 78 year-old female who presented to emergency department early this morning with complaint of upper abdominal pain with radiation to her back and associated nausea that suddenly woke her up. Recent diagnosis of breast cancer stage 1 (consultation with surgeon at [facility] yesterday). 7 weeks s/p bilateral laparoscopic oophorectomy for bilateral ovarian cysts. Pathology without any carcinoma. ER work-up showed normal labs however ultrasound showing distended gallbladder, stones, evidence of acute cholecystitis, and choledocholithiasis. Abdomen is soft, nontender on examination this morning. Plan: Given evidence of choledocholithiasis on ultrasound, consult GI for ERCP. Discussed with patient findings of acute cholecystitis and recommendation for cholecystectomy given pain and choledocholithiasis. Discussed the options of cholecystectomy timing either as an inpatient or scheduled as an outpatient. Dr Celestin prefers not to do cholecystectomy at same time of ERCP given prolonged anesthesia. Discussed option of inpatient cholecystectomy on Sunday vs outpati ent cholecystectomy if she stays stable and pain controlled after ERCP. At this time her and her would like to schedule for cholecystectomy on Sunday. Discussed with patient laparoscopic approach to the surgery. Continue NPO status for ERCP today Continue IV pain management as needed Continue IV Zofran as needed Continue IV Unasyn SCDs, will add Lovenox SQ for DVT prophylaxis after ERCP May have clear liquids and advance to low fat diet after ERCP up until Sunday at midnight NPO Sunday after midnight Hold Lovenox starting Sunday at midnight follow labs over weekend If she were to decide for outpatient cholecystectomy, would recommend PO Cipro for 7 days and close follow-up with Dr. Celestin early next week to schedule cholecystectomy. Dr. Sheets covering this weekend Dr. Celestin has seen and examined patient, agrees with above. 10/22/2018 12:01PM doing fine, tolerated clear diet, update about OR finding and the procedure pt had, I answered all questions, regular diet, stool softner may D/C home tomorrow, 10/23/2018 9:37am, pt will be discharged home once she passed BM, pt wants to go home today, the post-op care instruction was given. f/u me in 1 week, Subjective Patient status post ERCP on Sunday evening now with improvement of her abdominal discomfort. It appears that her cholecystectomy is pending for Sunday. Physical Exam Constitutional: WD/WN, vitals as above Neck: trachea midline, no thyromegaly Respiratory: normal respiratory effort, lungs clear to auscultation normal respiratory effort Cardiovascular: RRR, no murmur, no edema Rate/Rhythm: regular rate and regular rhythm Heart Sounds: normal S1 and normal S2 Gastrointestinal (Abdomen): Percussion/Palpation: abdomen soft no tenderness, all incisions intact, no redness, no drainage, JOHN 60ml/24h Neurologic: awake Psychiatric: Orientation: alert and oriented x 3 Results & Data Vital Signs (Past 12 Hours) Vital Signs Temp Pulse Pulse Resp BP Pulse Ox 10/23/18 07:55 36.4 C L 63 18 178/80 H 96 10/22/18 23:42 36.5 C 91 H 16 152/83 H 92
[2018-10-23] MEDS ORDERED: FAMOTIDINE 20 MG TAB PO SCH (10:30)
--- NOTE | 2018-10-23 12:56 | Discharge Summary ---
ADMITTING DIAGNOSES: Acute cholecystitis, cholelithiasis and common bile duct stone. PROCEDURE: ERCP and laparoscopic cholecystectomy. SURGEON: Trevin Celestin MD. DETAILS OF DISCHARGE SUMMARY: This is a 78-year-old female who was admitted to the hospital for acute cholecystitis, cholelithiasis with common bile duct stone and patient had ERCP by the GI doctor. The patient tolerated the ERCP well and the patient stayed in the hospital for another couple days and we took the patient to the OR. We did a laparoscopic cholecystectomy, 1 JOHN drainage. The patient tolerated the procedure well, and during the procedure, we found the patient had significant inflammation on the gallbladder wall, and now the patient tolerates a regular diet and no significant abdominal pain. The JOHN drained 60 mL of clear fluid. PHYSICAL EXAMINATION: VITAL SIGNS: Temperature is 36.4, respiratory rate 18, heart rate 63, blood pressure 178/80, O2 saturation 96% on room air. GENERAL: The patient is alert, awake, oriented x3, no distress. HEENT: Within normal limitation. NEUROLOGIC: Intact. NECK: No JVD. CHEST: Bilateral lung sounds clear. HEART: Normal S1, S2. No murmur. ABDOMEN: Soft, no distention, no tenderness. JOHN drain is intact. All incisions intact. No redness. No drainage. EXTREMITIES: No edema. The patient tolerates a regular diet. No abdominal pain, no nausea, no vomiting. The patient will go home once patient passes stool, and I did give the patient postop care instructions. The patient understands. I will follow up the patient in 1 week and then in my office, I will remove the JOHN drainage.
[2018-10-23] MEDS ORDERED: SOD PHOSPHATE/SOD BIPHOSPHATE ENEMA 132 ML BTL PR STA (16:49)
[2018-10-23] MEDS: OXYCODONE/ACETAMINOPHEN 5mg/325mg TAB PO PRN (19:19)
[2018-10-28] MEDS ORDERED: [UNRECOGNIZED DRUG - OTHER] SCH (18:29)
== END 2018-10-23 19:28 | disposition home or self-care (01) | DRG 419 ==
LOC: ED 00:57 → 3N 00:57